=== PATIENT | male | born 1955 | race Caucasian/White ===

== ENCOUNTER → 2017-01-31 | Outpatient (CLI) | payer OTHER ==
--- NOTE | 2017-01-31 10:42 | REP ---
RIGHT KNEE SERIES: Five views. HISTORY: Pain in the right knee. FINDINGS: There is osteoarthritic spurring and mild narrowing of the patellofemoral compartment. There is narrowing and sclerosis and spur formation in the medial compartment. There is some diffuse osteopenia. Minimal lateral spurring is seen. No joint effusion or erosive change is appreciated. IMPRESSION: Three compartment osteoarthritic changes most pronounced in the medial compartment where there is joint space narrowing and reactive sclerosis in addition to the spurring. Signed by Twan Valencia MD 01/31/2017 11:59 A
== END ==
LOC: M ADAMS 07:57
PROVIDERS: ATTEND Physician Assistant Medical
DX: M17.11 Unilateral primary osteoarthritis, right knee (principal); M85.80 Other specified disorders of bone density and structure, unspecified site

== ENCOUNTER → 2017-01-31 | Outpatient (REF) | payer OTHER ==
[2017-01-31 13:47] LABS: BASO % 0.4 % (0.0-1.0); EOS # 0.2 10^3/uL (0.0-0.50); EOS % 2.4 % (0.0-3.0); IMMATURE GRANULOCYTE % 0.3 % (0-0); LYMPH # 2.5 10^3/uL (1.5-4.5); LYMPH % 27.5 % (24.0-44.0); MEAN CORPUSCULAR HEMOGLOBIN 30.2 pg (27.0-33.0); MEAN CORPUSCULAR HGB CONC 33.1 g/dl (32.0-36.5); MEAN CORPUSCULAR VOLUME 91.2 fl (80.0-96.0); MONO # 0.6 10^3/uL (0.0-0.8); MONO % 6.8 % (0.0-5.0); NEUTROPHILS # 5.8 10^3/uL (1.8-7.7); NEUTROPHILS % 62.6 % (36.0-66.0); PLATELET COUNT, AUTOMATED 223 10^3/uL (150-450); RED CELL DISTRIBUTION WIDTH 13.5 % (11.5-14.5); WHITE BLOOD COUNT 9.2 10^3/uL (4.0-10.0)
[2017-01-31 14:17] LABS: ALBUMIN/GLOBULIN RATIO 1.29 (1.00-1.93); ALKALINE PHOSPHATASE 66 U/L (45-117); ALT/SGPT 26 U/L (12-78); ANION GAP 5 MEQ/L (8-16); AST/SGOT 17 U/L (15-37); BILIRUBIN,TOTAL 0.5 MG/DL (0.2-1.0); BLOOD UREA NITROGEN 11 MG/DL (7-18); CALCIUM LEVEL 8.8 MG/DL (8.8-10.2); CARBON DIOXIDE LEVEL 31 MEQ/L (21-32); CHLORIDE LEVEL 104 MEQ/L (98-107); CHOLESTEROL LEVEL 223 MG/DL (<200); CREATININE FOR GFR 0.77 MG/DL (0.70-1.30); GLOMERULAR FILTRATION RATE > 60.0 (>49); GLUCOSE, FASTING 86 MG/DL (80-110); POTASSIUM SERUM 4.2 MEQ/L (3.5-5.1); SODIUM LEVEL 140 MEQ/L (136-145); TOTAL PROTEIN 7.1 GM/DL (6.4-8.2); TRIGLYCERIDES LEVEL 118 MG/DL (<150)
== END ==
LOC: M SFHCADAM 07:56
PROVIDERS: ATTEND Physician Assistant Medical
DX: Z00.00 Encounter for general adult medical examination without abnormal findings (principal)

== ENCOUNTER → 2017-06-18 | Outpatient (REF) | payer OTHER ==
[2017-06-18 14:12] LABS: ALBUMIN 3.9 GM/DL (3.2-5.2); ALKALINE PHOSPHATASE 66 U/L (45-117); ALT/SGPT 23 U/L (12-78); ANION GAP 7 MEQ/L (8-16); AST/SGOT 17 U/L (7-37); BILIRUBIN,TOTAL 0.5 MG/DL (0.2-1.0); BLOOD UREA NITROGEN 11 MG/DL (7-18); CARBON DIOXIDE LEVEL 29 MEQ/L (21-32); CHLORIDE LEVEL 103 MEQ/L (98-107); CHOLESTEROL LEVEL 238 MG/DL (<200); CREATININE FOR GFR 0.87 MG/DL (0.70-1.30); GLOMERULAR FILTRATION RATE > 60.0 (>49); GLUCOSE, FASTING 87 MG/DL (70-100); HDL CHOLESTEROL 40 MG/DL (>40); LDL CHOLESTEROL 173.2 MG/DL (<100); NON-HDL-C 198 MG/DL; POTASSIUM SERUM 4.4 MEQ/L (3.5-5.1); SODIUM LEVEL 139 MEQ/L (136-145); TOTAL PROTEIN 6.9 GM/DL (6.4-8.2); TRIGLYCERIDES LEVEL 124 MG/DL (<150)
== END ==
LOC: M SFHCPLAZ 07:59
DX: E78.00 Pure hypercholesterolemia, unspecified (principal); F17.210 Nicotine dependence, cigarettes, uncomplicated; M25.561 Pain in right knee
CPT/HCPCS: 80053

== ENCOUNTER → 2018-01-07 | Outpatient (REF) | payer OTHER ==
[2018-01-07 13:39] LABS: ALBUMIN 3.9 GM/DL (3.2-5.2); ALBUMIN/GLOBULIN RATIO 1.39 (1.00-1.93); ALKALINE PHOSPHATASE 62 U/L (45-117); ALT/SGPT 31 U/L (12-78); ANION GAP 8 MEQ/L (8-16); AST/SGOT 17 U/L (7-37); BILIRUBIN,TOTAL 0.6 MG/DL (0.2-1.0); BLOOD UREA NITROGEN 11 MG/DL (7-18); CALCIUM LEVEL 8.7 MG/DL (8.8-10.2); CARBON DIOXIDE LEVEL 26 MEQ/L (21-32); CHLORIDE LEVEL 105 MEQ/L (98-107); CHOLESTEROL LEVEL 227 MG/DL (<200); CHOLESTEROL RISK RATIO 5.675 (<5); CREATININE FOR GFR 0.73 MG/DL (0.70-1.30); GLOMERULAR FILTRATION RATE > 60.0 (>49); GLUCOSE, FASTING 87 MG/DL (70-100); HDL CHOLESTEROL 40 MG/DL (>40); LDL CHOLESTEROL 166 MG/DL (<100); NON-HDL-C 187 MG/DL; POTASSIUM SERUM 4.1 MEQ/L (3.5-5.1); SODIUM LEVEL 139 MEQ/L (136-145); TOTAL PROTEIN 6.7 GM/DL (6.4-8.2); TRIGLYCERIDES LEVEL 107 MG/DL (<150)
== END ==
LOC: M SFHCADAM 08:06
DX: E78.00 Pure hypercholesterolemia, unspecified (principal)

== ENCOUNTER → 2018-06-10 | Outpatient (REF) | payer OTHER ==
[2018-06-10 13:53] LABS: ALBUMIN 4.1 GM/DL (3.2-5.2); ALT/SGPT 35 U/L (12-78); BILIRUBIN,TOTAL 0.7 MG/DL (0.2-1.0); BLOOD UREA NITROGEN 9 MG/DL (7-18); CALCIUM LEVEL 8.8 MG/DL (8.8-10.2); CARBON DIOXIDE LEVEL 25 MEQ/L (21-32); CHLORIDE LEVEL 105 MEQ/L (98-107); CHOLESTEROL LEVEL 174 MG/DL (<200); CHOLESTEROL RISK RATIO 4.578 (<5); CREATININE FOR GFR 0.73 MG/DL (0.70-1.30); GLOMERULAR FILTRATION RATE > 60.0 (>49); GLUCOSE, FASTING 90 MG/DL (70-100); HDL CHOLESTEROL 38 MG/DL (>40); LDL CHOLESTEROL 114 MG/DL (<100); NON-HDL-C 136 MG/DL; POTASSIUM SERUM 4.3 MEQ/L (3.5-5.1); SODIUM LEVEL 139 MEQ/L (136-145); TOTAL PROTEIN 6.8 GM/DL (6.4-8.2); TRIGLYCERIDES LEVEL 111 MG/DL (<150)
== END ==
LOC: M SFHCADAM 07:47
PROVIDERS: ATTEND Physician Assistant Medical
DX: E78.00 Pure hypercholesterolemia, unspecified (principal)

== ENCOUNTER → 2018-06-18 | Outpatient (CLI) | payer OTHER ==
--- NOTE | 2018-06-18 14:30 | REP ---
Clinical: Pain. Technique: AP and lateral views of the right and left knee. Findings: Moderate tricompartmental osteoarthritic degenerative changes noted bilaterally. Findings include subchondral sclerosis, medial joint space narrowing, and a scattered osteophyte formation. No acute fracture dislocation. No significant swelling. No obvious effusion. Impression: Bilateral moderate tricompartmental osteoarthritic degenerative changes. Electronically Signed by Pieter Singh MD 06/18/2018 02:21 P
== END ==
LOC: M ADAMS 13:32
PROVIDERS: ATTEND Physician Assistant Medical
DX: M25.561 Pain in right knee (principal); M25.562 Pain in left knee

== ENCOUNTER → 2019-05-01 | Outpatient (CLI) | payer OTHER ==
--- NOTE | 2019-05-01 10:01 | REP ---
SCROTAL ULTRASOUND: Real-time sonographic evaluation of the scrotum and contents performed. The testicles are normal in size and echotexture, right testicle measuring 4.8 x 2.7 x 3.2 cm and left testicle 4.6 x 3.1 x 3.1 cm. There is no testicular mass or torsion, blood flow is seen in each chest with duplex Doppler evaluation. Two cysts are seen in the left epididymis containing echogenic debris. These measure 6.9 x 4.5 x 6.4 cm and 4.0 x 3.2 x 3.2 cm. Tubular ectasia is seen in the mediastinum testis bilaterally. There are small bilateral hydroceles. IMPRESSION: Two fairly large cysts of the left epididymis contain some internal echogenic debris as discussed above. No testicular mass or torsion. Electronically Signed by Brandan Mistry MD 05/02/2019 03:12 P
== END ==
LOC: M RAD 07:53
PROVIDERS: ATTEND Physician Assistant Medical
DX: N50.89 Other specified disorders of the male genital organs (principal)

== ENCOUNTER → 2019-05-29 | Outpatient (REF) | payer OTHER | LOC: M LABDRWAD 12:34 | DX: M17.0 Bilateral primary osteoarthritis of knee (principal) ==

== ENCOUNTER → 2019-05-29 | Outpatient (REF) | payer OTHER ==
[2019-05-29 13:08] LABS: BASO % 0.5 % (0.0-1.0); EOS # 0.2 10^3/uL (0.0-0.5); LYMPH # 2.8 10^3/uL (1.5-5.0); LYMPH % 32.7 % (24.0-44.0); MEAN CORPUSCULAR HEMOGLOBIN 30.6 pg (27.0-33.0); MEAN CORPUSCULAR HGB CONC 33.3 g/dl (32.0-36.5); MEAN CORPUSCULAR VOLUME 91.8 fl (80.0-96.0); MONO # 0.7 10^3/uL (0.0-0.8); MONO % 7.6 % (0.0-5.0); NEUTROPHILS # 4.9 10^3/uL (1.5-8.5); PLATELET COUNT, AUTOMATED 210 10^3/uL (150-450); RED BLOOD COUNT 5.23 10^6/uL (4.30-6.10); WHITE BLOOD COUNT 8.7 10^3/uL (4.0-10.0)
[2019-05-29 14:03] LABS: ALT/SGPT 34 U/L (12-78); BILIRUBIN,TOTAL 0.5 MG/DL (0.2-1.0); BLOOD UREA NITROGEN 11 MG/DL (7-18); CALCIUM LEVEL 9.1 MG/DL (8.8-10.2); CARBON DIOXIDE LEVEL 29 MEQ/L (21-32); CHLORIDE LEVEL 104 MEQ/L (98-107); CHOLESTEROL LEVEL 180 MG/DL (<200); CHOLESTEROL RISK RATIO 4.736 (<5); CREATININE FOR GFR 0.85 MG/DL (0.70-1.30); GLOMERULAR FILTRATION RATE > 60.0 (>49); GLUCOSE, FASTING 92 MG/DL (70-100); HDL CHOLESTEROL 38 MG/DL (>40); LDL CHOLESTEROL 122 MG/DL (<100); NON-HDL-C 142 MG/DL; POTASSIUM SERUM 4.6 MEQ/L (3.5-5.1); SODIUM LEVEL 139 MEQ/L (136-145); TOTAL PROTEIN 7.1 GM/DL (6.4-8.2); TRIGLYCERIDES LEVEL 98 MG/DL (<150)
== END ==
LOC: M SFHCADAM 08:13
PROVIDERS: ATTEND Physician Assistant Medical
DX: E78.00 Pure hypercholesterolemia, unspecified (principal); F17.210 Nicotine dependence, cigarettes, uncomplicated

== ENCOUNTER → 2019-12-25 | Outpatient (REF) | payer OTHER | LOC: M LAB REF 12:13 | PROVIDERS: ATTEND Dermatology | DX: L57.0 Actinic keratosis (principal) ==

== ENCOUNTER → 2020-03-24 | Outpatient (CLI) | payer OTHER ==
--- NOTE | 2020-03-24 10:25 | REP ---
INDICATION: OSTEOARTHRITIS RIGHT KNEE- LABS/EKG 1ST COMPARISON: None. TECHNIQUE: PA and lateral. FINDINGS: The mediastinum and cardiac silhouette are normal. The lung richardson are clear and without acute consolidation, effusion, or pneumothorax. The skeletal structures are intact and normal. IMPRESSION: No acute cardiopulmonary process. <Electronically signed by Pieter Singh > 03/24/20 1022
[2020-03-24 10:35] LABS: HEMATOCRIT 45.8 % (42.0-52.0); HEMOGLOBIN 15.5 g/dl (13.5-17.5); MEAN CORPUSCULAR HEMOGLOBIN 30.9 pg (27.0-33.0); MEAN CORPUSCULAR HGB CONC 33.8 g/dl (32.0-36.5); MEAN CORPUSCULAR VOLUME 91.2 fl (80.0-96.0); PLATELET COUNT, AUTOMATED 211 10^3/uL (150-450); RED BLOOD COUNT 5.02 10^6/uL (4.30-6.10); WHITE BLOOD COUNT 6.5 10^3/uL (4.0-10.0)
[2020-03-24 10:48] LABS: INR 1.02; PROTHROMBIN TIME 13.6 SECONDS (12.5-14.3)
[2020-03-24 11:17] LABS: ALBUMIN 3.9 GM/DL (3.2-5.2); ALT/SGPT 35 U/L (12-78); BILIRUBIN,TOTAL 0.7 MG/DL (0.2-1.0); BLOOD UREA NITROGEN 10 MG/DL (7-18); CALCIUM LEVEL 8.8 MG/DL (8.8-10.2); CARBON DIOXIDE LEVEL 28 MEQ/L (21-32); CHLORIDE LEVEL 106 MEQ/L (98-107); CREATININE FOR GFR 0.89 MG/DL (0.70-1.30); ERYTHROCYTE SEDIMENTATION RATE 3 mm/hr (0-20); GLOMERULAR FILTRATION RATE > 60.0 (>49); GLUCOSE, FASTING 90 MG/DL (70-100); POTASSIUM SERUM 4.3 MEQ/L (3.5-5.1); SODIUM LEVEL 140 MEQ/L (136-145); TOTAL PROTEIN 6.9 GM/DL (6.4-8.2)
--- NOTE | 2020-03-24 12:20 | ECGEPIP ---
[facility] Test Date: 2020-03-24 Pat Name: ALEENA BEARD Department: Room: - Gender: Male Import Clerk: ASTRID : 1955 Requested By: Spencer Lim Order Number: [id number] Reading MD: Charlotte Velez Measurements Intervals Yoder Rate: 51 P: 2 NM: 191 QRS: 30 QRSD: 113 T: 29 QT: 432 QTc: 401 Interpretive Statements SINUS BRADYCARDIA POSSIBLE INFERIOR MYOCARDIAL INFARCTION, PROBABLY OLD NO PRIOR Electronically Signed on 03-24-2020 12:20:30 EST by Charlotte Velez
== END ==
LOC: M LAB 08:24
PROVIDERS: ATTEND Orthopaedic Surgery
DX: Z01.818 Encounter for other preprocedural examination (principal); M17.11 Unilateral primary osteoarthritis, right knee; R94.31 Abnormal electrocardiogram [ECG] [EKG]

== ENCOUNTER → 2020-04-17 | Outpatient (CLI) | payer OTHER ==
[~2020-04-17] MED LIST: MELO15TA28 PO; SIMV20TA22 PO
== END ==
LOC: M LABSMTC 08:10
PROVIDERS: ATTEND Anesthesiology
DX: Z01.812 Encounter for preprocedural laboratory examination (principal); Z20.828 Contact with and (suspected) exposure to other viral communicable diseases

== ENCOUNTER 2020-04-20 06:18 | Inpatient (IN) | payer OTHER ==
[2020-04-20] VITALS (7 sets, daily range): BP systolic 127–149; BP diastolic 80–96
[~2020-04-20] VITALS: Ht 185.4 cm; Wt 98.8 kg
[2020-04-20] MEDS ORDERED: fentaNYL 100 MCG/2 ML INJECTION (J3010) As Ordered ONE ×2 (06:58→07:09)
[2020-04-20] MEDS ORDERED: MIDAZOLAM INJ 2MG/2ML VIAL (J2250 PER 1MG) As Ordered ONE ×2 (06:58→07:09)
[2020-04-20] MEDS ORDERED: LR 1,000 ML IV ONE (07:00)
[2020-04-20] MEDS ORDERED: ceFAZolin SOD 2 GM in IV 1 EA IV ONE (07:00)
[2020-04-20] MEDS ORDERED: ACETAMINOPHEN 500 MG TAB PO ONE (07:00)
[2020-04-20] MEDS ORDERED: MIDAZOLAM INJ 2MG/2ML VIAL (J2250 PER 1MG) IV PRN (07:01)
[2020-04-20] MEDS ORDERED: fentaNYL 100 MCG/2 ML INJECTION (J3010) IV PRN ×2 (07:01→10:00)
[2020-04-20] MEDS ORDERED: BUPIVACAINE HCL 0.25% 10ML VIAL As Ordered ONE (07:06)
[2020-04-20] MEDS ORDERED: TRANEXAMIC ACID 100 MG/ML 10ML VIAL As Ordered ONE (07:06)
[2020-04-20] MEDS ORDERED: BUPIVACAINE LIPOSOME/PF 1.3% 20ML VIAL (13.3MG/ML)(EXPAREL)(C9290 PER1MG) As Ordered ONE (07:07)
[2020-04-20] MEDS ORDERED: EPINEPHrine INJ 1 MG/ML 1ML AMP As Ordered ONE ×2 (07:07→07:22)
[2020-04-20] MEDS ORDERED: ceFAZolin 1GM VIAL (J0690 PER 500MG) As Ordered ONE (07:07)
[2020-04-20] MEDS ORDERED: LIDOCAINE 2% 100MG/5ML SDV (FOR ANES.) As Ordered ONE (07:09)
[2020-04-20] MEDS ORDERED: ONDANSETRON 4MG/2ML VIAL As Ordered ONE (07:09)
[2020-04-20] MEDS ORDERED: propofoL 200 MG/20 ML VIAL As Ordered ONE ×3 (07:09→09:22)
[2020-04-20] MEDS ORDERED: ROPIvacaine 0.5% 30ML INJECTION (J2795 PER 1MG) As Ordered ONE (07:22)
[2020-04-20] MEDS ORDERED: dexameTHASONE 10MG/1ML VIAL PRES.FREE (J1100 PER 1MG) As Ordered ONE (07:22)
[2020-04-20] MEDS ORDERED: EPINEPHrine INJ 1 MG/ML 1ML AMP XX ONE (07:30)
[2020-04-20] MEDS ORDERED: ROPIvacaine 0.5% 30ML INJECTION (J2795 PER 1MG) XX ONE (07:30)
[2020-04-20] MEDS ORDERED: dexameTHASONE 10MG/1ML VIAL PRES.FREE (J1100 PER 1MG) XX ONE (07:30)
[2020-04-20] MEDS ORDERED: ePHEDrine SULFATE 25 MG/5 ML(5MG/ML) SYRINGE As Ordered ONE (08:55)
[2020-04-20] MEDS ORDERED: MORPHINE 2 MG/ML 1ML VIAL (J2270) IV PRN (10:00)
[2020-04-20] MEDS ORDERED: MORPHINE 4 MG/ML 1ML VIAL/SYRINGE (J2270) IV PRN (10:00)
[2020-04-20] MEDS ORDERED: ACETAMINOPHEN TAB 650MG DOSE (2X325MG) PO PRN (10:00)
[2020-04-20] MEDS ORDERED: LR 1,000 ML IV SCH ×2 (10:00)
[2020-04-20] MEDS ORDERED: oxyCODONE 5MG TAB PO PRN (10:00)
[2020-04-20] MEDS ORDERED: PERCOCET 5MG/325MG TAB PO PRN (10:00)
[2020-04-20] MEDS ORDERED: ONDANSETRON 4MG/2ML VIAL IV PRN ×2 (10:00)
--- NOTE | 2020-04-20 10:22 | RO ---
OPERATIVE NOTE DATE OF OPERATION: 04/20/2020 PREOPERATIVE DIAGNOSIS: Right knee degenerative arthritis. POSTOPERATIVE DIAGNOSIS: Right knee degenerative arthritis. PROCEDURE: Right total knee arthroplasty using a size 6 cruciate-sacrificing femoral component, size 8 tibial try with a 7-mm rotating platform polyethylene insert, and a 38-mm polyethylene button. All components were cemented. Prosthesis was made by [employer] and was an Attune knee. SURGEON: Spencer Celis M.D. FOOD SCIENCE PROFESSOR: BRIT Osullivan. ANESTHESIA: Spinal with right femoral nerve block. COMPLICATIONS: None. ESTIMATED BLOOD LOSS: 30 mL. SPECIMENS: Joint surface. DESCRIPTION OF PROCEDURE: Antibiotics were given intravenously preoperative, a successful right femoral nerve block, and then a spinal anesthetic was induced. Tourniquet was placed to the right upper thigh and not inflated. The right lower extremity was carefully prepped and draped in the usual sterile fashion and the leg elevated. After appropriate time-out, the tourniquet was inflated. Then, a longitudinal incision was made for a medial parapatellar approach to the knee. Bovee cautery used to coagulate crossing vessels. A subperiosteal dissection around the proximal, medial, and lateral tibial plateau was performed. The patella was everted, the knee flexed, and ACL debrided. The drill was placed down the center of the femoral canal followed by intramedullary kathie. The distal femoral cutting jig was set at 9 mm resection level and 5-degree valgus cut for a right knee. Distal femoral cut performed. AP sizing jig measured for a size 7. The 4:1 block applied with 3 degrees of external rotation dialed in. Anterior and posterior chamfer cuts were then performed. Then the sulcus osteotomy jig was applied and the sulcus osteotomy performed. We then exposed the proximal tibia and used the extramedullary alignment jig for the tibial cut to estimate being parallel to the mechanical axis, referring off the medial tibial condyle at 4 mm resection level. The blocked was pinned in to position. A secondary check with the extramedullary kathie confirmed that we appeared to be parallel to the mechanical axis. Proximal tibial osteotomy was thus performed. We then placed the lamina research assistant member medially and performed completion lateral meniscectomy reaming the posterior lateral osteophytes. I then placed the lamina research assistant member laterally and performed a completion medial meniscus reaming the posterior medial osteophytes. We then placed a spacer block, but he was very tight asymmetrically in flexion versus extension. There was a fairly significant mismatch. We could barely even get a 5 mm in the flexion gap, but he needed about an 8 mm in extension. At this point, I elected to downsize the femoral component. The femoral jig was then reapplied, that is the 4:1 block, into the prior holes using the batwing to make sure we had appropriate alignment and then, the posterior and the chamfer cuts were performed and revised. We then replaced the spacer block and it was clearly improved, but he was still a bit asymmetrically tight in flexion versus extension. I did also recut the tibia because he had very dense bone medially and I thought that the blade skived a bit, thus I reapplied the jig and then recut part of the medial tibial plateau, and it did take a bit more bone off; but it still was quite not enough. Thus, I felt converting to a PCL-sacrificing knee was necessary. Thus, the box jig for the box osteotomy was applied and the box osteotomy performed. We then sized the tibial tray for an 8; reamed, drilled, broached, and then applied the femoral component. Then placed a trial 7-mm rotating platform trial and brought the knee into extension. With this, he had excellent stability symmetrically both in flexion and extension to varus and valgus stress testing. We everted the patella and performed the patella osteotomy and sized for a 38 button. The lug holes were drilled, the trial placed, and patellofemoral tracking was anatomic. Thus, I felt this was the appropriate size components to use. Mr. Wallace then mixed the cement on the back table as I prepared the bony surfaces for cementing with a copious amount of pulsatile lavage irrigant solution. He was also critical to the success of this difficult procedure by helping with appropriate soft tissue retraction, helping to manipulate the knee, helping to mix the cemented, helping to close the wound, and helping preparing the patient amongst many other tasks to allow me to perform the operation, smooth, efficiently, and safely. Once all the bony surfaces were thoroughly dried, we cemented the tibial tray, and removed excess cement. We then cemented the femoral component; removed excess cemented, and placed the polyethylene. We then brought to extension, then cemented the patellar button, held it with a clamp, and then removed excess cement, and held the knee in extension until the cement hardened. As we were waiting, we continued to irrigate out the knee joint and then placed tranexamic acid in the depths of the wound. Exparel was placed into the subperiosteal tissues around the distal femur and the proximal tibia prior to cementing. We then closed the apex of the arthrotomy with two #1 PDS sutures. The medial parapatellar area was closed with a #1 PDS suture, and then a running double-arm #1 STRATAFIX was used to close the capsule. The tourniquet was then released. We then irrigated between layers, closed the deep subdermal tissues with interrupted 2-0 PDS sutures, and skin was closed with erin covered by Optifoam and dry sterile bulky dressing. The patient was then transferred to the recovery room in stable condition. There were no intraoperative complications.
--- NOTE | 2020-04-20 10:25 | REP ---
INDICATION: POST OP EVAL IN PACU COMPARISON: None. TECHNIQUE: AP and cross-table lateral views. FINDINGS: Normal appearance and positioning to the femoral and tibial components. Overlying postsurgical changes and skin erin noted. IMPRESSION: Status post right knee replacement. Satisfactory positioning. <Electronically signed by Pieter Singh > 04/20/20 1028
--- NOTE | 2020-04-20 11:14 | HPE ---
HISTORY AND PHYSICAL DATE OF ADMISSION: 04/20/2020 ATTENDING PHYSICIAN: Spencer CELIS MD CHIEF COMPLAINT: Right knee pain and stiffness. HISTORY OF PRESENT ILLNESS: The patient is a pleasant 64-year-old male with progressively worsening right knee pain and stiffness. He failed to improve with conservative measures. He continues to have symptoms with weightbearing activities and activities of daily living. He consented for an elective right total knee arthroplasty with Dr. Celis for his continued symptoms. Medical optimization pending with is primary youth care worker, BRIT Davis. CURRENT MEDICATIONS: 1. Simvastatin 20 mg daily. 2. Meloxicam 15 mg daily. ALLERGIES: There are no known drug allergies. CHRONIC MEDICAL CONDITIONS: 1. Hyperlipidemia. PAST SURGICAL HISTORY: None. SOCIAL HISTORY: Patient denies tobacco or alcohol use. REVIEW OF SYSTEMS: The patient denies fevers, chills, nausea, vomiting or diarrhea. Denies chest pain, shortness of breath, lightheadedness, dizziness or headaches. Denies any recent upper respiratory or urinary tract infection symptoms. Denies any abdominal pain. The patient does continue to have right knee with weightbearing activities and activities of daily living. PHYSICAL EXAMINATION: GENERAL: Well-nourished, well-developed male in no apparent distress. He is alert and oriented, and cooperative. Mood and affect are appropriate. VITAL SIGNS: Blood pressure is 138/42, respirations are 12, heart rate is 86, weight is 217 pounds, height is 6'2". NECK: Supple without lymphadenopathy. HEART: Regular rate and rhythm. LUNGS: Clear to auscultation bilaterally. ABDOMEN: Soft and nontender. Bowel sounds are present. MUSCULOSKELETAL: Right knee exhibits no gross abnormalities. Skin is intact. He is not using any assistive devices for ambulation. Walking with a slight limp favoring the right lower extremity. There is tenderness along the medial joint line. He has full motion of the right knee with 5/5 strength of the right lower extremity. No hip irritability elicited with range of motion testing. The patient's calf is soft and nontender without evidence of DVT. He is neurovascularly intact distally. LABORATORY DATA: Chest x-ray: No acute cardiopulmonary process. Right knee x-ray notable for endstage degenerative changes. EKG: Sinus bradycardia with possible inferior myocardial infarction, probably old. Pro-Thrombin time 13.6, INR 1.02. Complete blood count: ESR 3, WBC 6.5, RBC is 5.02, hemoglobin 15.5, hematocrit 45.8, platelets 211,000. Comprehensive metabolic profile: Fasting glucose 90, BUN 10, creatinine 0.89. GFR greater than 60. Sodium 140, potassium 4.3, chloride 106, carbon dioxide 28. Anion gap decreased at 6. Calcium 8.8. AST 17, ALT 35, alkaline phosphatase 52. Total bilirubin 0.7. Total protein 6.9. Albumin 3.9, albumin globulin ratio 1.3. IMPRESSION: Right knee degenerative arthritis with x-rays notable for endstage degenerative changes. PLAN: Patient has consented for an elective right total knee arthroplasty with Dr. Celis for his continued symptoms. Medical optimization pending with is primary youth care worker. Patient is using his Hibiclens and Bactroban as directed. He will be NPO after midnight the night prior to surgery. He will follow his primary youth care worker's recommendations for how to take his daily medications. GAMAL
[2020-04-20] MEDS: PERCOCET 5MG/325MG TAB PO PRN ×2 (13:59→20:18)
--- NOTE | 2020-04-20 15:09 | CR.PDOC ---
General Date of Consultation: Apr 20, 2020 Consultation Chief complaint: Presented to [facility] for elective orthopedic procedure History of present illness: Patient is a 64-year-old male with past medical history of osteoarthritis of both his knees and high cholesterol who presented to [facility] for an elective orthopedic procedure. Patient has received outpatient medical care from his primary care provider Olga Dobbs. Hospital services called to evaluate patient postoperative. Currently patient denies any chest pain, shortness breath, palpitations, nausea, vomiting, abdominal pain, diarrhea, constipation, or urinary discomfort. He denies any recent fevers or chills. Denies any changes in his weight or his appetite. Past Medical History: Osteoarthritis of both his knees High cholesterol Past Surgical History: Tonsillectomy as a child Right arm lymph node resection, was evaluate for possible leukemia, however was found to be secondary to cat scratch Allergies: See below Medications: See below Family History: - No history of malignancies Social History: - Denies the use of illicit drugs; patient quit smoking several years ago. 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 [employer] Review of Systems: 10 point review of systems complete, all negative otherwise stated in HPI Physical exam: - Vitals: BP [127/80], HR [100], RR [18], Sat [100%RA], Temp [96.0F] - General: Lying in bed, Speaking in full sentences, AAOx3 - HEENT: NC, AT, PERRLA - CVS: RRR, +S1S2 - Lungs: Fair air entry bilaterally, No appreciable wheezing / rales / rhonchi - Abdomen: Soft, Non-distended, Non-tender - Extremities: No lower extremity edema, No calf tenderness - Neuro: No focal motor or sensory deficit - Skin: No visible rashes Labs: See below Imaging: See below EKG: See below Assessment and Plan: Elective total right knee arthroplasty (POD#0) - Presented to [facility] for elective orthopedic procedure - Patient has received outpatient medical attention his primary care provider - Pain control, anticoagulation and physical therapy at the direction of primary orthopedic team DLP - c/w Simvastatin DVT prophylaxis - As per orthopedic surgery Vital Signs/I&O Vital Signs Date Time Temp Pulse Resp B/P (MAP) Pulse Ox O2 Delivery O2 Flow Rate FiO2 12/30/20 14:10 95.0 72 18 142/84 (103) 96 Room Air 04/20/20 09:40 3 Allergies Coded Allergies: No Known Allergies (Unverified , 04/13/20) Home Medications Scheduled Simvastatin (Simvastatin) 20 Mg Tablet, 20 MG PO DAILY, (Reported) Scheduled PRN Meloxicam (Meloxicam) 15 Mg Tablet, 15 MG PO DAILYPRN PRN for pain, (Reported) ALBERTO YIN MD Apr 20, 2020 15:09
[2020-04-20] MEDS: ceFAZolin SOD 2 GM in IV 1 EA IV SCH ×2 (15:48→23:28)
[2020-04-20] MEDS: ASPIRIN 81 MG ENTERIC TAB PO SCH (20:17)
[2020-04-21 02:00] VITALS: BP 113/68
[2020-04-21 05:54] VITALS: BP 106/65
[2020-04-21] MEDS ORDERED: PERC5TAB12 PO (06:32)
[2020-04-21] MEDS ORDERED: XARE10TA PO (06:32)
[2020-04-21] MEDS: ASPIRIN 81 MG ENTERIC TAB PO SCH (07:06)
[2020-04-21] MEDS: PERCOCET 5MG/325MG TAB PO PRN (07:07)
[2020-04-21 07:08] LABS: HEMATOCRIT 38.8 % (42.0-52.0); MEAN CORPUSCULAR HEMOGLOBIN 30.7 pg (27.0-33.0); MEAN CORPUSCULAR HGB CONC 33.5 g/dl (32.0-36.5); MEAN CORPUSCULAR VOLUME 91.7 fl (80.0-96.0); PLATELET COUNT, AUTOMATED 193 10^3/uL (150-450); RED BLOOD COUNT 4.23 10^6/uL (4.30-6.10); WHITE BLOOD COUNT 11.9 10^3/uL (4.0-10.0)
[2020-04-21] MEDS: ceFAZolin SOD 2 GM in IV 1 EA IV SCH (07:34)
[2020-04-21 07:42] LABS: ALBUMIN 3.2 GM/DL (3.2-5.2); ALT/SGPT 27 U/L (12-78); BILIRUBIN,TOTAL 0.6 MG/DL (0.2-1.0); BLOOD UREA NITROGEN 13 MG/DL (7-18); CALCIUM LEVEL 8.1 MG/DL (8.8-10.2); CARBON DIOXIDE LEVEL 29 MEQ/L (21-32); CHLORIDE LEVEL 106 MEQ/L (98-107); CREATININE FOR GFR 0.79 MG/DL (0.70-1.30); GLOMERULAR FILTRATION RATE > 60.0 (>49); GLUCOSE, FASTING 111 MG/DL (70-100); POTASSIUM SERUM 4.2 MEQ/L (3.5-5.1); SODIUM LEVEL 139 MEQ/L (136-145); TOTAL PROTEIN 5.9 GM/DL (6.4-8.2)
[2020-04-21] MEDS ORDERED: MOM 30ML SUSPENSION UDC PO SCH (09:00)
[2020-04-21] MEDS ORDERED: SIMVASTATIN 20 MG TAB PO SCH (09:00)
[2020-04-21] MEDS ORDERED: MIRALAX *UNIT DOSE* 17GM PACKET PO SCH (09:00)
--- NOTE | 2020-04-21 13:38 | IPNPDOC ---
Text Note Date of Service The patient was seen on 04/21/20. NOTE Subjective: Patient is a 64-year-old male with past medical history of osteoarthritis of both his knees and high cholesterol who presented to for an elective orthopedic procedure. Patient has received outpatient medical care from his primary care provider Olga Dobbs. Hospital services called to evaluate patient postoperative. Patient was seen and examined at the bedside. Currently patient denies any chest pain, shortness breath or palpitations. Has been working with physical therapy and has been cleared for discharge home. Denies any nausea, vomiting, abdominal pain, diarrhea, or urinary discomfort. Objective: Vitals (See below) General: Lying in bed, no acute distress, comfortable, AAOx3 HEENT: NC, AT CVS: +S1S2 Lungs: appears to be fair air entry bilaterally without any evidence of rhonchi, crackles or wheezing Abdomen: Soft, nondistended, nontender Extremities: No evidence of edema, - Calf tenderness Assessment and plan: Elective total right knee arthroplasty (POD#1) - Presented to for elective orthopedic procedure - Patient has received outpatient medical attention his primary care provider - Pain control, anticoagulation and physical therapy at the direction of primary orthopedic team - Patient has cleared physical therapy for discharge home today DLP - c/w Simvastatin DVT prophylaxis - As per orthopedic surgery Disposition: - DC home today VSLyric, I+O VSLyric, I+O Laboratory Tests 04/21/20 06:38 Vital Signs Date Time Temp Pulse Resp B/P (MAP) Pulse Ox O2 Delivery O2 Flow Rate FiO2 04/21/20 07:37 16 04/21/20 07:07 64 97 Room Air 04/21/20 05:54 99.0 106/65 (79) 04/20/20 09:40 3 I&O- Last 24 Hours up to 6 AM 04/21/20 06:00 Intake Total 2450 ml Output Total 30 ml Balance 2420 ml ALBERTO IYN MD Apr 21, 2020 13:38
== END 2020-04-21 10:50 | disposition home or self-care (01) | DRG 470 ==
LOC: M OR 06:18 → M MS5PR 10:37
PROVIDERS: ADMIT Orthopaedic Surgery; ATTEND Orthopaedic Surgery
PROC: 0SRC0J9 Replacement of Right Knee Joint with Synthetic Substitute, Cemented, Open Approach (ICD-10-PCS; principal; 2020-04-20 07:30)
DX: M17.11 Unilateral primary osteoarthritis, right knee (principal); Z79.899 Other long term (current) drug therapy; E78.5 Hyperlipidemia, unspecified

== ENCOUNTER 2020-05-26 15:26 | Emergency (ER) | payer OTHER, MEDICARE ==
[~2020-05-26] VITALS: Ht 185.4 cm; Wt 100.3 kg
[~2020-05-26 15:26] MED LIST changes: +PERC5TAB12 PO; +XARE10TA PO
--- OUTSIDE RECORDS SUMMARY | 2020-05-26 15:34 | CCD | Continuity of Care Document ---
Author Author Shelton SANCHEZ Organization Unknown Address [address] [address] Phone [phone] Care Team Providers Care Bullet Slug Casting Machine Operator Name Role Phone Olga Martin RPA AUTM Problems Description No Information Available Social History Type Date Description Comments Sex Unknown ETOH Use Rarely consumes alcohol Tobacco Use Start: Unknown End: Unknown Patient is a former smoker Allergies, Adverse Reactions, Alerts Description No Known Drug Allergies Medications Active Medications SIG Qnty Indications Ordering Provide r Date Simvastatin 40mg Tablets Unknown Meloxicam 15mg Tablets 1 by mouth every day with food or milk Unknown History Medications Hibiclens 4% Liquid use in shower once daily for 5 days before surgery 1units Spencer blanco MD 02/24/2020 - 05/06/2020 Bactroban 2% Ointment apply a pea sized amount to nasal passages three times a day x 5d before surgery ALEISHA Clemons MD 02/24/2020 - 05/06/2020 Immunizations Description No Information Available Vital Signs Date Vital Result Comment 05/06/2020 9:55am Body Temperature 96.2 F 04/18/2020 10:00am BP Systolic 138 mmHg BP Diastolic 42 mmHg Heart Rate 86 /min Body Temperature 96.8 F Height 74 inches 6'2" Weight 217.00 lb BMI (Body Mass Index) 27.9 kg/m2 Respiratory Rate 12 /min Results Test Acquired Date Facility Test Result H/L Range Note Prothrombin Time/Inr 03/24/2020 [facility] entr [address] [place] [address] (897)- - Prothrombin Time 13.6 seconds Normal 12.5-14.3 Inr 1.02 Normal 1 Complete Blood Count 03/24/2020 [facility] C entr [address] [place] [address] (315)- - White Blood Count 6.5 10 Normal 4.0-10.0 Red Blood Count 5.02 10 Normal 4.30-6.10 Hemoglobin 15.5 g/dL Normal 13.5-17.5 Hematocrit 45.8 % Normal 42.0-52.0 Mean Corpuscular Volume 91.2 fl Normal 80.0-96.0 Mean Corpuscular Hemoglobin 30.9 pg Normal 27.0-33.0 Mean Corpuscular HGB Conc 33.8 g/dL Normal 32.0-36.5 Red Cell Distribution Width 12.7 % Normal 11.5-14.5 Platelet Count, Automated 211 10 Normal 150-450 Nucleated Red Blood Cell % 0.0 % Normal 0-0 Laboratory test finding 03/24/2020 [facility] l Centr [address] [place] [address] (315)- - Erythrocyte Sedimentation Rate 3 mm/hr Normal 0-20 Comprehensive Metabolic Profil 03/24/2020 [facility] Medical [facility] [address] [place] [address] (315)- - Glucose, Fasting 90 mg/dL Normal 70-100 Blood Urea Nitrogen 10 mg/dL Normal 7-18 Creatinine For GFR 0.89 mg/dL Normal 0.70-1.30 Glomerular Filtration Rate > 60.0 Normal >49 2 Sodium Level 140 mEq/L Normal 136-145 Potassium Serum 4.3 mEq/L Normal 3.5-5.1 Chloride Level 106 mEq/L Normal 98-107 Carbon Dioxide Level 28 mEq/L Normal 21-32 Anion Gap 6 mEq/L Low 8-16 Calcium Level 8.8 mg/dL Normal 8.8-10.2 Ast/Sgot 17 U/L Normal 7-37 Alt/SGPT 35 U/L Normal 12-78 Alkaline Phosphatase 52 U/L Normal 45-117 Bilirubin,Total 0.7 mg/dL Normal 0.2-1.0 Total Protein 6.9 GM/DL Normal 6.4-8.2 Albumin 3.9 GM/DL Normal 3.2-5.2 Albumin/Globulin Ratio 1.3 Normal 1 THERAPUTIC HUMAN INR VALUES INDICATIONS NORMAL RANGES PROPHYLAXIS/TREATMENT OF: VENOUS THROMBOSIS 2.0-3.0 PULMONARY EMBOLISM 2.0-3.0 PREVENTION OF SYSTEMIC EMBOLISM FROM: TISSUE HEART VALVES 2.0-3.0 ACUTE MYOCARDIAL INFARCTION 2.0-3.0 VALVULAR HEART DISEASE 2.0-3.0 ATRIAL FIBRILLATION 2.0-3.0 MECHANICAL VALVES(HIGH RISK) 2.5-3.5 RECURRENT MYOCARDIAL INFARCTION 2.5-3.5 2 Units are mL/min/1.73 m2 Chronic Kidney Disease Staging per NKF: Stage I & II GFR >=60 Normal to Mildly Decreased Stage III GFR 30-59 Moderately Decreased Stage IV GFR 15-29 Severely Decreased Stage V GFR <15 Very Little GFR Left ESRD GFR <15 on JUTE BAG CLIPPER Procedures Date Code Description Status 05/25/2020 24463 Therapeutic Procedure, Each 15 M inutes Completed 05/23/2020 97418 Therapeutic Procedure, Each 15 M inutes Completed 05/23/2020 31756 Therapeutic Procedure, Each 15 M inutes Completed 05/20/2020 97961 Therapeutic Procedure, Each 15 M inutes Completed 05/20/2020 86651 Therapeutic Procedure, Each 15 M inutes Completed 05/18/2020 98188 Therapeutic Procedure, Each 15 M inutes Completed 05/18/2020 07884 Therapeutic Procedure, Each 15 M inutes Completed 05/16/2020 64420 Therapeutic Procedure, Each 15 M inutes Completed 05/16/2020 60569 Therapeutic Procedure, Each 15 M inutes Completed 05/13/2020 37462 Therapeutic Procedure, Each 15 M inutes Completed 05/13/2020 74247 Therapeutic Procedure, Each 15 M inutes Completed 05/11/2020 81217 Therapeutic Procedure, Each 15 M inutes Completed 05/11/2020 15462 Therapeutic Procedure, Each 15 M inutes Completed 05/09/2020 01009 Therapeutic Procedure, Each 15 M inutes Completed 05/09/2020 17417 Therapeutic Procedure, Each 15 M inutes Completed 05/06/2020 74413 Therapeutic Procedure, Each 15 M inutes Completed 05/06/2020 41098 Therapeutic Procedure, Each 15 M inutes Completed 05/04/2020 50231 Physical Therapy Eval - Low Comp lexity Completed 04/20/2020 22477 Arthroplasty "Total Knee" Medial & Lateral W/ Or W/O Patella Resu Completed 04/20/2020 04755 Arthroplasty "Total Knee" Medial & Lateral W/ Or W/O Patella Resu Completed 01/15/2020 53094 X-Ray Knee Ap & Lateral W/Obliqu es Three Views Completed 01/15/2020 08059 X-Ray Knee Ap & Lateral W/Obliqu es Three Views Completed Medical Devices Description No Information Available Encounters Type Date Location Provider Dx Diagnosis Office Visit 05/06/2020 9:45a Nell Horne PA-C Z47.1 Aftercare following joint replacement surgery Z96.651 Presence of right artificial knee joint Office Visit 04/18/2020 10:00a Nell Horne PA-C Z01.818 Encounter for other preprocedural examination M17.11 Unilateral primary osteoarth ritis, right knee Office Visit 01/15/2020 9:15a Nell Clemons MD M1 7.0 Bilateral primary osteoarthritis of knee Assessments Date Code Description Provider 05/25/2020 Z47.1 Aftercare following joint replac ement surgery Tracy Benson, [facility] 05/25/2020 Z96.651 Presence of right artificial kne e joint Tracy Benson, [facility] 05/23/2020 Z47.1 Aftercare following joint replac ement surgery Trang Scee P.T.A. 05/23/2020 Z96.651 Presence of right artificial kne e joint Trang Scee P.T.A. 05/20/2020 Z47.1 Aftercare following joint replac ement surgery Trang Scee P.T.A. 05/20/2020 Z96.651 Presence of right artificial kne e joint Trang Scee P.T.A. 05/18/2020 Z47.1 Aftercare following joint replac ement surgery Trang Scee P.T.A. 05/18/2020 Z96.651 Presence of right artificial kne e joint Trang Scee P.T.A. 05/16/2020 Z47.1 Aftercare following joint replac ement surgery Tracy Benson, [facility] 05/16/2020 Z96.651 Presence of right artificial kne e joint Tracy Benson, [facility] 05/13/2020 Z47.1 Aftercare following joint replac ement surgery Trang Scee P.T.A. 05/13/2020 Z96.651 Presence of right artificial kne e joint Trang Scee P.T.A. 05/11/2020 Z47.1 Aftercare following joint replac ement surgery Trang Scee P.T.A. 05/11/2020 Z96.651 Presence of right artificial kne e joint Trang Scee P.T.A. 05/09/2020 Z47.1 Aftercare following joint replac ement surgery Trang Scee P.T.A. 05/09/2020 Z96.651 Presence of right artificial kne e joint Trang Scee P.T.A. 05/06/2020 Z47.1 Aftercare following joint replac ement surgery Tracy Benson, [facility] 05/06/2020 Z47.1 Aftercare following joint replac ement surgery Janina Horne PA-C 05/06/2020 Z96.651 Presence of right artificial kne e joint Tracy Benson, [facility] 05/06/2020 Z96.651 Presence of right artificial kne e joint Janina Horne PA-C 05/04/2020 Z47.1 Aftercare following joint replac ement surgery Tracy Benson, [facility] 05/04/2020 Z96.651 Presence of right artificial kne e joint Tracy Benson, [facility] 04/20/2020 M17.11 Unilateral primary osteoarthriti s, right knee Jairo Wallace, [facility] 04/20/2020 M17.11 Unilateral primary osteoarthriti s, right knee Spencer Clemons MD 04/18/2020 Z01.818 Encounter for other preprocedura l dhaval Horne PA-C 04/18/2020 M17.11 Unilateral primary osteoarthriti s, right knee Janina Horne PA-C 01/15/2020 M17.0 Bilateral primary osteoarthritis of knee Spencer Clemons MD Plan of Treatment Future Appointment(s):* 06/02/2020 10:00 am - FLORENCIO Mart at Physical Therapy * 05/31/2020 11:00 am - Trang Sanchez P.T.A. at Physical Therapy * 05/27/2020 10:00 am - Trang Sanchez P.T.A. at Physical Therapy * 06/03/2020 10:30 am - Janina Horne PA-C at [place] Functional Status Description No Information Available Mental Status Description No Information Available Referrals Refer to Dr Reason for Referral Status Appt Date Castro Clemons MD PT BASED ON MED. [facility] AND Mena TYLER HAVE A $25 COPAY TO PT DEPT. NT Created [address] [place] [address] [phone] Castro Clemons MD SURGERY PER BANDAR AT R APPRO MARIELY FOR TOTAL RT KNEE(02015) TO SURGERY 04/11/20 RECEIVED WRITTEN AUTH Created [address] [place] [address] [phone]
--- OUTSIDE RECORDS SUMMARY | 2020-05-26 15:34 | CCD | Continuity of Care Document ---
Author Author Shelton SANCHEZ Organization Unknown Address [address] [address] Phone [phone] Care Team Providers Care Parts Department Supervisor Name Role Phone Olga Martin RPA AUTM [phone] Problems Description No Information Available Social History [...] Result H/L Range Note Prothrombin Time/Inr 03/24/2020 [facility] entr [address] [place] [address] (225)- - Prothrombin Time 13.6 seconds Normal 12.5-14.3 Inr 1.02 Normal 1 Complete Blood Count 03/24/2020 [facility] C entr [address] [place] [address] (315)- - White Blood Count 6.5 10 [...] % Normal 0-0 Laboratory test finding 03/24/2020 [facility] l Centr [address] [place] [address] (315)- - Erythrocyte Sedimentation Rate 3 mm/hr Normal 0-20 Comprehensive Metabolic Profil 03/24/2020 [facility] Medical [facility] [address] [place] [address] (315)- - Glucose, Fasting 90 mg/dL Normal [...] Little GFR Left ESRD GFR <15 on BREWING DIRECTOR Procedures Date Code Description Status 05/25/2020 22314 Therapeutic Procedure, Each 15 M inutes Completed 05/23/2020 00059 Therapeutic Procedure, Each 15 M inutes Completed 05/23/2020 30345 Therapeutic Procedure, Each 15 M inutes Completed 05/20/2020 39629 Therapeutic Procedure, Each 15 M inutes Completed 05/20/2020 75750 Therapeutic Procedure, Each 15 M inutes Completed 05/18/2020 19510 Therapeutic Procedure, Each 15 M inutes Completed 05/18/2020 27893 Therapeutic Procedure, Each 15 M inutes Completed 05/16/2020 51888 Therapeutic Procedure, Each 15 M inutes Completed 05/16/2020 63884 Therapeutic Procedure, Each 15 M inutes Completed 05/13/2020 55359 Therapeutic Procedure, Each 15 M inutes Completed 05/13/2020 16005 Therapeutic Procedure, Each 15 M inutes Completed 05/11/2020 02274 Therapeutic Procedure, Each 15 M inutes Completed 05/11/2020 15147 Therapeutic Procedure, Each 15 M inutes Completed 05/09/2020 98397 Therapeutic Procedure, Each 15 M inutes Completed 05/09/2020 30386 Therapeutic Procedure, Each 15 M inutes Completed 05/06/2020 35773 Therapeutic Procedure, Each 15 M inutes Completed 05/06/2020 05086 Therapeutic Procedure, Each 15 M inutes Completed 05/04/2020 60604 Physical Therapy Eval - Low Comp lexity Completed 04/20/2020 13268 Arthroplasty "Total Knee" Medial & Lateral W/ Or W/O Patella Resu Completed 04/20/2020 20773 Arthroplasty "Total Knee" Medial & Lateral W/ Or W/O Patella Resu Completed 01/15/2020 85756 X-Ray Knee Ap & Lateral W/Obliqu es Three Views Completed 01/15/2020 06867 X-Ray Knee Ap & Lateral W/Obliqu es [...] following joint replac ement surgery Tracy Benson, [facility] 05/25/2020 Z96.651 Presence of right artificial kne e joint Tracy Benson, [facility] 05/23/2020 Z47.1 Aftercare following joint replac [...] following joint replac ement surgery Tracy Benson, [facility] 05/16/2020 Z96.651 Presence of right artificial kne e joint Tracy Benson, [facility] 05/13/2020 Z47.1 Aftercare following joint replac ement surgery Trang Scee P.T.A. 05/13/2020 Z96.651 Presence of right artificial kne e joint Trang Scee P.T.A. 05/11/2020 Z47.1 Aftercare following joint replac ement surgery Trang Scee P.T.A. 05/11/2020 Z96.651 Presence of right artificial kne e joint Trang Scee P.T.A. 05/09/2020 Z47.1 Aftercare following joint replac ement surgery Rtang Scee P.T.A. 05/09/2020 Z96.651 Presence of right artificial kne e joint Trang Scee P.T.A. 05/06/2020 Z47.1 Aftercare following joint replac ement surgery Tracy Benson, [facility] 05/06/2020 Z47.1 Aftercare following joint replac ement surgery Janina Horne PA-C 05/06/2020 Z96.651 Presence of right artificial kne e joint Tracy Benson, [facility] 05/06/2020 Z96.651 Presence of right artificial kne e joint Janina Horne PA-C 05/04/2020 Z47.1 Aftercare following joint replac ement surgery Tracy Benson, [facility] 05/04/2020 Z96.651 Presence of right artificial kne e joint Tracy Benson, [facility] 04/20/2020 M17.11 Unilateral primary osteoarthriti s, right [...] 10:30 am - Janina Horne PA-C at [place] Functional Status Description No Information Available Mental Status Description No Information Available Referrals Refer to Dr Reason for Referral Status Appt Date Castro Clemons MD PT BASED ON MED. [facility] AND Mena TYLER HAVE A $25 COPAY TO PT DEPT. NT Created [address] [place] [phone] Castro Clemons MD SURGERY PER BANDAR AT R APPRO MARIELY FOR TOTAL RT KNEE(95186) TO SURGERY 04/11/20 RECEIVED WRITTEN AUTH Created [address] [place] [phone]
--- OUTSIDE RECORDS SUMMARY | 2020-05-26 15:34 | CCD | Continuity of Care Document ---
Author Author Shelton SANCHEZ Organization Unknown Address [address] [address] Phone [phone] Care Team Providers Care Air Traffic Controller Center Name Role Phone Olga Martin RPA AUTM [...] Result H/L Range Note Prothrombin Time/Inr 03/24/2020 [facility] entr [address] [place] [address] (055)- - Prothrombin Time 13.6 seconds Normal 12.5-14.3 Inr 1.02 Normal 1 Complete Blood Count 03/24/2020 [facility] C entr [address] [place] [address] (315)- - White Blood Count 6.5 10 [...] % Normal 0-0 Laboratory test finding 03/24/2020 [facility] l Centr [address] [place] [address] (315)- - Erythrocyte Sedimentation Rate 3 mm/hr Normal 0-20 Comprehensive Metabolic Profil 03/24/2020 [facility] Medical [facility] [address] [place] [address] (315)- - Glucose, Fasting 90 mg/dL Normal [...] Little GFR Left ESRD GFR <15 on SENIOR SOFTWARE TESTER Procedures Date Code Description Status 05/25/2020 54324 Therapeutic Procedure, Each 15 M inutes Completed 05/23/2020 81898 Therapeutic Procedure, Each 15 M inutes Completed 05/23/2020 71076 Therapeutic Procedure, Each 15 M inutes Completed 05/20/2020 28160 Therapeutic Procedure, Each 15 M inutes Completed 05/20/2020 04536 Therapeutic Procedure, Each 15 M inutes Completed 05/18/2020 80714 Therapeutic Procedure, Each 15 M inutes Completed 05/18/2020 88016 Therapeutic Procedure, Each 15 M inutes Completed 05/16/2020 88412 Therapeutic Procedure, Each 15 M inutes Completed 05/16/2020 67493 Therapeutic Procedure, Each 15 M inutes Completed 05/13/2020 85966 Therapeutic Procedure, Each 15 M inutes Completed 05/13/2020 80140 Therapeutic Procedure, Each 15 M inutes Completed 05/11/2020 56020 Therapeutic Procedure, Each 15 M inutes Completed 05/11/2020 05970 Therapeutic Procedure, Each 15 M inutes Completed 05/09/2020 46214 Therapeutic Procedure, Each 15 M inutes Completed 05/09/2020 01241 Therapeutic Procedure, Each 15 M inutes Completed 05/06/2020 27419 Therapeutic Procedure, Each 15 M inutes Completed 05/06/2020 90137 Therapeutic Procedure, Each 15 M inutes Completed 05/04/2020 30879 Physical Therapy Eval - Low Comp lexity Completed 04/20/2020 54130 Arthroplasty "Total Knee" Medial & Lateral W/ Or W/O Patella Resu Completed 04/20/2020 41885 Arthroplasty "Total Knee" Medial & Lateral W/ Or W/O Patella Resu Completed 01/15/2020 70714 X-Ray Knee Ap & Lateral W/Obliqu es Three Views Completed 01/15/2020 79577 X-Ray Knee Ap & Lateral W/Obliqu es [...] following joint replac ement surgery Tracy Benson, [facility] 05/25/2020 Z96.651 Presence of right artificial kne e joint Tracy Benson, [facility] 05/23/2020 Z47.1 Aftercare following joint replac ement [...] following joint replac ement surgery Tracy Benson, [facility] 05/16/2020 Z96.651 Presence of right artificial kne e joint Tracy Benson, [facility] 05/13/2020 Z47.1 Aftercare following joint replac ement [...] following joint replac ement surgery Tracy Benson, [facility] 05/06/2020 Z47.1 Aftercare following joint replac ement surgery Janina Horne PA-C 05/06/2020 Z96.651 Presence of right artificial kne e joint Tracy Benson, [facility] 05/06/2020 Z96.651 Presence of right artificial kne e joint Janina Horne PA-C 05/04/2020 Z47.1 Aftercare following joint replac ement surgery Tracy Benson, [facility] 05/04/2020 Z96.651 Presence of right artificial kne e joint Tracy Benson, [facility] 04/20/2020 M17.11 Unilateral primary osteoarthriti s, [...] 10:30 am - Janina Horne PA-C at [place] Functional Status Description No Information Available Mental Status Description No Information Available Referrals Refer to Dr Reason for Referral Status Appt Date Castro Clemons MD PT BASED ON MED. [facility] AND Mena TYLER HAVE A $25 COPAY TO PT DEPT. NT Created [address] [place] [phone] Castro Clemons MD SURGERY PER BANDAR AT R APPRO MARIELY FOR TOTAL RT KNEE(90416) TO SURGERY 04/11/20 RECEIVED WRITTEN AUTH Created [address] [place] [phone]
--- OUTSIDE RECORDS SUMMARY | 2020-05-26 15:35 | CCD | Continuity of Care Document ---
Author Author Shelton SANCHEZ Organization Unknown Address [address] [address] Phone [phone] Care Team Providers Care Hadoop Consultant Name Role Phone Olga Martin RPA AUTM [phone] Problems Description No Information Available Social History [...] H/L Range Note Prothrombin Time/Inr 03/24/2020 [facility] entr [address] [place] [address] (166)- - Prothrombin Time 13.6 seconds Normal 12.5-14.3 Inr 1.02 Normal 1 Complete Blood Count 03/24/2020 [facility] C entr [address] [place] [address] (315)- - White Blood Count 6.5 10 [...] % Normal 0-0 Laboratory test finding 03/24/2020 [facility] l Centr [address] [place] [address] (315)- - Erythrocyte Sedimentation Rate 3 mm/hr Normal 0-20 Comprehensive Metabolic Profil 03/24/2020 [facility] Medical [facility] [address] [place] [address] (315)- - Glucose, Fasting 90 mg/dL Normal [...] Little GFR Left ESRD GFR <15 on MINE LABORER Procedures Date Code Description Status 05/11/2020 07157 Therapeutic Procedure, Each 15 M inutes Completed 05/09/2020 16843 Therapeutic Procedure, Each 15 M inutes Completed 05/06/2020 96449 Therapeutic Procedure, Each 15 M inutes Completed 05/04/2020 54975 Physical Therapy Eval - Low Comp lexity Completed 04/20/2020 94011 Arthroplasty "Total Knee" Medial & Lateral W/ Or W/O Patella Resu Completed 04/20/2020 91946 Arthroplasty "Total Knee" Medial & Lateral W/ Or W/O Patella Resu Completed 01/15/2020 82610 X-Ray Knee Ap & Lateral W/Obliqu es Three Views Completed 01/15/2020 10372 X-Ray Knee Ap & Lateral W/Obliqu es [...] of knee Assessments Date Code Description Provider 05/09/2020 Z47.1 Aftercare following joint replac ement surgery Trang Sanchez P.T.A. 05/09/2020 Z96.651 Presence of right artificial kne e joint Trang Sanchez P.T.A. 05/06/2020 Z47.1 Aftercare following joint replac ement surgery FLORENCIO Mart 05/06/2020 Z47.1 Aftercare following joint replac ement surgery Janina Horne PA-C 05/06/2020 Z96.651 Presence of right artificial kne e joint Tracy Arie Benson, FLORENCIO 05/06/2020 Z96.651 Presence of right artificial kne e joint Janina Horne PA-C 05/04/2020 M17.11 Unilateral primary osteoarthriti s, right knee FLORENCIO Mart 04/20/2020 M17.11 Unilateral primary osteoarthriti s, right knee Judy Elizabeth 04/20/2020 M17.11 Unilateral primary osteoarthriti s, right knee Spencer Clemons MD 04/18/2020 Z01.818 Encounter for other preprocedura l examination Janina Horne PA-C 04/18/2020 M17.11 Unilateral primary osteoarthriti s, right knee Janina Horne PA-C 01/15/2020 M17.0 Bilateral primary osteoarthritis of knee Castro. Raphael Clemons MD Plan of Treatment Future Appointment(s):* 05/16/2020 10:00 am - FLORENCIO Mart at Physical Therapy * 05/20/2020 10:00 am - Trang Scee P.T.A. at Physical Therapy * 05/18/2020 10:00 am - Trang Pachecoe P.T.A. at Physical Therapy * 06/03/2020 10:30 am - Janina Horne PA-C at [place] * 05/13/2020 10:00 am - Trang Scee P.T.A. at Physical Therapy Functional Status Description No Information Available Mental Status Description No Information Available Referrals Refer to Reason for Referral Status Appt Date Castro Clemons MD PT BASED ON MED. [facility] AND Mena TYLER HAVE A $25 COPAY TO PT DEPT. NT Created [address] [place] [address], [address] [place] [address] [phone] Castro Clemons MD SURGERY PER BANDAR AT [facility] APPRO MARIELY FOR TOTAL RT KNEE([id number]) TO SURGERY 04/11/20 RECEIVED WRITTEN AUTH Created [facility], [address] [place] [address] [phone]
--- OUTSIDE RECORDS SUMMARY | 2020-05-26 15:35 | CCD | Continuity of Care Document ---
Author Author Shelton PORRASC Organization Unknown Address [address] [address] Phone [phone] Care Team Providers Care Front Loader Residential Driver Name Role Phone Olga Martin [facility] AUTM Problems Description No Information Available Social History Type Date Description Comments Sex Unknown ETOH Use Rarely consumes alcohol Tobacco Use Start: Unknown End: Unknown Patient is a former smoker Allergies, Adverse Reactions, Alerts Description No Known Drug Allergies Medications Active Medications SIG Qnty Indications Ordering Provide r Date Hibiclens 4% Liquid use in shower once daily for 5 days before surgery 1units Spencer blanco MD 02/24/2020 Bactroban 2% Ointment apply a pea sized amount to nasal passages three times a day x 5d before surgery QS Spencer Clemons MD 02/24/2020 Simvastatin 40mg Tablets Unknown Meloxicam 15mg Tablets 1 by mouth every day with food or milk Unknown Immunizations Description No Information Available Vital Signs Date Vital Result Comment 04/18/2020 10:00am BP Systolic 138 mmHg BP Diastolic 42 mmHg Heart Rate 86 /min Body Temperature 96.8 F Height 74 inches 6'2" Weight 217.00 lb BMI (Body Mass Index) 27.9 kg/m2 Respiratory Rate 12 /min 01/15/2020 9:54am Body Temperature 96.8 F Height 73.5 inches 6'1.50" Weight 212.00 lb BMI (Body Mass Index) 27.6 kg/m2 Results Test Acquired Date Facility Test Result H/L Range Note Prothrombin Time/Inr 03/24/2020 [facility] entr [address] [place] [address] (849)- - Prothrombin Time 13.6 seconds Normal 12.5-14.3 Inr 1.02 Normal 1 Complete Blood Count 03/24/2020 [facility] C entr [address] [place] [address] (315)- - White Blood Count 6.5 10 [...] Normal 0-0 Laboratory test finding 03/24/2020 [facility] [address] [place] [address] (315)- - Erythrocyte Sedimentation Rate 3 mm/hr Normal 0-20 Comprehensive Metabolic Profil 03/24/2020 [facility] [address] [place] [address] (315)- - Glucose, Fasting 90 mg/dL Normal [...] Little GFR Left ESRD GFR <15 on ARMATURE VARNISHER Procedures Date Code Description Status 04/20/2020 72678 Arthroplasty "Total Knee" Medial & Lateral W/ Or W/O Patella Resu Completed 01/15/2020 93065 X-Ray Knee Ap & Lateral W/Obliqu es Three Views Completed 01/15/2020 26070 X-Ray Knee Ap & Lateral W/Obliqu es Three Views Completed 11/05/201975261 Inject/Drain Joint/Bursa Major C ompleted 11/05/2019 Inject/Drain Joint/Bursa Major C ompleted 10/28/2019 Inject/Drain Joint/Bursa Major C ompleted 10/28/2019 Inject/Drain Joint/Bursa Major C ompleted Medical Devices Description No Information Available Encounters Type Date Location Provider Dx Diagnosis Office Visit 04/18/2020 10:00a Nell Porras PA-C Z01.818 Encounter for other preprocedural examination M17.11 Unilateral primary osteoarth ritis, right knee Office Visit 01/15/2020 9:15a Nell Clemons MD M1 7.0 Bilateral primary osteoarthritis of knee Office Visit 11/05/2019 3:30p Nell Titus PA-C M1 7.0 Bilateral primary osteoarthritis of knee Office Visit 10/28/2019 3:45p Nell Titus PA-C M1 7.0 Bilateral primary osteoarthritis of knee Assessments Date Code Description Provider 04/20/2020 M17.11 Unilateral primary osteoarthriti s, right knee Spencer Clemons MD 04/18/2020 Z01.818 Encounter for other preprocedura l examination Janina Porras PA-C 04/18/2020 M17.11 Unilateral primary osteoarthriti s, right knee Janina Porras PA-C 01/15/2020 M17.0 Bilateral primary osteoarthritis of knee Spencer Clemons MD 11/05/2019 M17.0 Bilateral primary osteoarthritis of knee Pancho Titus PA-C 10/28/2019 M17.0 Bilateral primary osteoarthritis of knee Pancho Titus PA-C Plan of Treatment Future Appointment(s):* 05/05/2020 8:30 am - Spencer Clemons MD at [place] Functional Status Description No Information Available Mental Status Description No Information Available Referrals Refer to Reason for Referral Status Appt Date Castro Clemons MD SURGERY PER BANDAR AT [facility] APPRO MARIELY FOR TOTAL RT KNEE([id number]) TO SURGERY 04/11/20 RECEIVED WRITTEN AUTH Created [facility], [address] [place] [address] [phone]
--- OUTSIDE RECORDS SUMMARY | 2020-05-26 15:35 | CCD | Continuity of Care Document ---
Author Author Shelton [facility] Organization Unknown Address [address] [place] [address] Phone [phone] Care Team Providers Care Family Services Worker Name Role Phone Olga Martin [facility] AUTM Problems Description No Information Available Social [...] 5d before surgery ALEISHA Clemons MD 02/24/2020 Simvastatin 40mg Tablets Unknown [...] Result H/L Range Note Prothrombin Time/Inr 03/24/2020 [facility] entr [address] [place] [address] (392)- - Prothrombin Time 13.6 seconds Normal 12.5-14.3 Inr 1.02 Normal 1 Complete Blood Count 03/24/2020 [facility] C entr [address] [place] [address] (315)- - White Blood Count 6.5 10 [...] Normal 0-0 Laboratory test finding 03/24/2020 [facility] [address] [place] [address] (315)- - Erythrocyte Sedimentation Rate 3 mm/hr Normal 0-20 Comprehensive Metabolic Profil 03/24/2020 [facility] [address] [place] [address] (315)- - Glucose, Fasting 90 mg/dL Normal [...] Little GFR Left ESRD GFR <15 on CERTIFIED PROSTHETIST VICE PRESIDENT Procedures Date Code Description Status 04/20/2020 80882 Arthroplasty "Total Knee" Medial & Lateral W/ Or W/O Patella Resu Completed 04/20/2020 14500 Arthroplasty "Total Knee" Medial & Lateral W/ Or W/O Patella Resu Completed 01/15/2020 61691 X-Ray Knee Ap & Lateral W/Obliqu es Three Views Completed 01/15/2020 33816 X-Ray Knee Ap & Lateral W/Obliqu es Three Views Completed 11/05/2019 16619 Inject/Drain Joint/Bursa Major C ompleted 11/05/201917769 Inject/Drain Joint/Bursa Major C ompleted Medical Devices Description No Information Available Encounters Type Date Location Provider Dx Diagnosis Office Visit 04/18/2020 10:00a Nell Horne PA-C [...] Z01.818 Encounter for other preprocedura l dhaval Contreras Fish, PA-C 04/18/2020 M17.11 Unilateral primary osteoarthriti s, right knee Janina Horne PA-C 01/15/2020 M17.0 Bilateral primary osteoarthritis of knee Spencer Clemons MD 11/05/2019 M17.0 Bilateral primary osteoarthritis of knee Pancho Titsu PA-C Plan of Treatment Future Appointment(s):* 05/06/2020 9:00 am - YOLIE MartT at Physical Therapy * 05/05/2020 8:30 am - Spencer Clemons MD at [place] Functional Status Description No Information Available Mental Status Description No Information Available Referrals Refer to Dr Reason for Referral Status Appt Date Castro Clemons MD PT BASED ON MED. [facility] AND Mena TYLER HAVE A $25 COPAY TO PT DEPT. NT Created [address] [place] [address], [address] [address] [phone] Castro Clemons MD SURGERY PER BANDAR AT [facility] APPRO MARIELY FOR TOTAL RT KNEE([id number]) TO SURGERY 04/11/20 RECEIVED WRITTEN AUTH Created [address] [place] [address], [address] [address] [phone]
--- OUTSIDE RECORDS SUMMARY | 2020-05-26 15:35 | CCD | Continuity of Care Document ---
Author Author Shelton PORRASC Organization Unknown Address [address] [address] Phone [phone] Care Team Providers Care Appraiser Auditor Name Role Phone Olga Martin [facility] AUTM [phone] Problems Description No Information Available Social History [...] Result H/L Range Note Prothrombin Time/Inr 03/24/2020 [facility] entr [address] [place] [address] (884)- - Prothrombin Time 13.6 seconds Normal 12.5-14.3 Inr 1.02 Normal 1 Complete Blood Count 03/24/2020 [facility] C entr [address] [place] [address] (315)- - White Blood Count 6.5 10 [...] % Normal 0-0 Laboratory test finding 03/24/2020 [facility] Cent[facility] [address] [place] [address] (315)- - Erythrocyte Sedimentation Rate 3 mm/hr Normal 0-20 Comprehensive Metabolic Profil 03/24/2020 [facility] Medical [facility] [address] [place] [address] (315)- - Glucose, Fasting 90 mg/dL Normal [...] Little GFR Left ESRD GFR <15 on BALLING HEAD TENDER Procedures Date Code Description Status 05/11/2020 90966 Therapeutic Procedure, Each 15 M inutes Completed 05/09/2020 32419 Therapeutic Procedure, Each 15 M inutes Completed 05/06/2020 76835 Therapeutic Procedure, Each 15 M inutes Completed 05/04/2020 11316 Physical Therapy Eval - Low Comp lexity Completed 04/20/2020 99928 Arthroplasty "Total Knee" Medial & Lateral W/ Or W/O Patella Resu Completed 04/20/2020 45597 Arthroplasty "Total Knee" Medial & Lateral W/ Or W/O Patella Resu Completed 01/15/2020 48124 X-Ray Knee Ap & Lateral W/Obliqu es Three Views Completed 01/15/2020 47180 X-Ray Knee Ap & Lateral W/Obliqu es Three Views Completed Medical Devices Description No Information Available Encounters Type Date Location Provider Dx Diagnosis Office Visit 05/06/2020 9:45a Nell Porras PA-C Z47.1 Aftercare following joint replacement surgery Z96.651 Presence of right artificial knee joint Office Visit 04/18/2020 10:00a Nell Porras PA-C Z01.818 Encounter for other preprocedural examination M17.11 Unilateral primary osteoarth ritis, right knee Office Visit 01/15/2020 9:15a Nell Clemons MD M1 7.0 Bilateral primary osteoarthritis of knee Assessments Date Code Description Provider 05/11/2020 Z47.1 Aftercare following joint replac ement surgery Trang Sanchez P.T.A. 05/11/2020 Z96.651 Presence of right artificial kne e joint Trang Sanchez P.T.A. 05/09/2020 Z47.1 Aftercare following joint replac ement surgery Trang Scee P.T.A. 05/09/2020 Z96.651 Presence of right artificial kne e joint Trang Scee P.T.A. 05/06/2020 Z47.1 Aftercare following joint replac ement surgery [facility] 05/06/2020 Z47.1 Aftercare following joint replac ement surgery Janina Porras PA-C 05/06/2020 Z96.651 Presence of right artificial kne e joint Tracy Jimenesdonis, [facility]SP[facility] 05/06/2020 Z96.651 Presence of right artificial kne e joint Janina Porras PA-C 05/04/2020 M17.11 Unilateral primary osteoarthriti s, right knee Tracy MarchGem Benson, FLORENCIO 04/20/2020 M17.11 Unilateral primary osteoarthriti s, right knee Jairo Wallace PPedro Luis 04/20/2020 M17.11 Unilateral primary osteoarthriti s, right [...] Therapy * 06/03/2020 10:30 am - Janina Porras PA-C at [place] * 05/13/2020 10:00 am - Trang Scee P.T.A. at Physical Therapy Functional Status Description No Information Available Mental Status Description No Information Available Referrals Refer to Dr Reason for Referral Status Appt Castro Graf MD PT BASED ON MED. [facility] AND Mena TYLER HAVE A $25 COPAY TO PT DEPT. NT Created [address] [place] [address], [address] [address] [phone] Castro Clemons MD SURGERY PER BANDAR AT [facility] APPRO MARIELY FOR TOTAL RT KNEE([id number]) TO SURGERY 04/11/20 RECEIVED WRITTEN AUTH Created [address] [place] [address], [address] [address] [phone]
--- OUTSIDE RECORDS SUMMARY | 2020-05-26 15:35 | CCD | Continuity of Care Document ---
Author Author Shelton SANCHEZ Organization Unknown Address [address] [address] Phone [phone] Care Team Providers Care Home Care Provider Name Role Phone Olga Martin RPA AUTM [...] Result H/L Range Note Prothrombin Time/Inr 03/24/2020 [facility] entr [address] [place] [address] (747)- - Prothrombin Time 13.6 seconds Normal 12.5-14.3 Inr 1.02 Normal 1 Complete Blood Count 03/24/2020 [facility] C entr [address] [place] [address] (315)- - White Blood Count 6.5 10 [...] % Normal 0-0 Laboratory test finding 03/24/2020 [facility] Cent[facility] [address] [place] [address] (315)- - Erythrocyte Sedimentation Rate 3 mm/hr Normal 0-20 Comprehensive Metabolic Profil 03/24/2020 [facility] Medical [facility] [address] [place] [address] (315)- - Glucose, Fasting 90 mg/dL Normal [...] Little GFR Left ESRD GFR <15 on CASH POSTER Procedures Date Code Description Status 05/25/2020 16247 Therapeutic Procedure, Each 15 M inutes Completed 05/23/2020 39925 Therapeutic Procedure, Each 15 M inutes Completed 05/23/2020 88907 Therapeutic Procedure, Each 15 M inutes Completed 05/20/2020 06008 Therapeutic Procedure, Each 15 M inutes Completed 05/20/2020 52103 Therapeutic Procedure, Each 15 M inutes Completed 05/18/2020 01091 Therapeutic Procedure, Each 15 M inutes Completed 05/18/2020 41988 Therapeutic Procedure, Each 15 M inutes Completed 05/16/2020 60884 Therapeutic Procedure, Each 15 M inutes Completed 05/16/2020 34859 Therapeutic Procedure, Each 15 M inutes Completed 05/13/2020 99364 Therapeutic Procedure, Each 15 M inutes Completed 05/13/2020 28018 Therapeutic Procedure, Each 15 M inutes Completed 05/11/2020 32347 Therapeutic Procedure, Each 15 M inutes Completed 05/11/2020 41609 Therapeutic Procedure, Each 15 M inutes Completed 05/09/2020 10556 Therapeutic Procedure, Each 15 M inutes Completed 05/09/2020 37787 Therapeutic Procedure, Each 15 M inutes Completed 05/06/2020 34582 Therapeutic Procedure, Each 15 M inutes Completed 05/06/2020 66452 Therapeutic Procedure, Each 15 M inutes Completed 05/04/2020 48376 Physical Therapy Eval - Low Comp lexity Completed 04/20/2020 17993 Arthroplasty "Total Knee" Medial & Lateral W/ Or W/O Patella Resu Completed 04/20/2020 10448 Arthroplasty "Total Knee" Medial & Lateral W/ Or W/O Patella Resu Completed 01/15/2020 92317 X-Ray Knee Ap & Lateral W/Obliqu es Three Views Completed 01/15/2020 03302 X-Ray Knee Ap & Lateral W/Obliqu es [...] following joint replac ement surgery Tracy Benson, [facility] 05/25/2020 Z96.651 Presence of right artificial kne e joint Tracy Benson, [facility] 05/23/2020 Z47.1 Aftercare following joint [...] following joint replac ement surgery Tracy Benson, [facility] 05/16/2020 Z96.651 Presence of right artificial kne e joint Tracy Benson, [facility] 05/13/2020 Z47.1 Aftercare following joint [...] following joint replac ement surgery Tracy Benson, [facility] 05/06/2020 Z47.1 Aftercare following joint [...] Therapy * 06/03/2020 10:30 am - Janina Horen PA-C at [place] Functional Status Description No Information Available Mental Status Description No Information Available Referrals Refer to Dr Reason for Referral Status Appt Date Castro Clemons MD PT BASED ON MED. [facility] AND Mena TYLER HAVE A $25 COPAY TO PT DEPT. NT Created [address] [place] [address] [phone] Castro Clemons MD SURGERY PER BANDAR AT [facility] APPRO MARIELY FOR TOTAL RT KNEE([id number]) TO SURGERY 04/11/20 RECEIVED WRITTEN AUTH Created [address] [place] [address] [phone]
--- OUTSIDE RECORDS SUMMARY | 2020-05-26 15:35 | CCD | Continuity of Care Document ---
Author Author Shelton CLEMONS MD Organization Unknown Address [address] [place] [address] Phone [phone] Care Team Providers Care Suction Worker Name Role Phone Olga Martin RPA AUTM [...] Result H/L Range Note Prothrombin Time/Inr 03/24/2020 [facility] entr [address] [place] [address] (315)- - Prothrombin Time 13.6 seconds Normal 12.5-14.3 Inr 1.02 Normal 1 Complete Blood Count 03/24/2020 [facility] C entr [address] [place] [address] (315)- - White Blood Count 6.5 10 [...] % Normal 0-0 Laboratory test finding 03/24/2020 [facility] l Centr [address] [place] [address] (315)- - Erythrocyte Sedimentation Rate 3 mm/hr Normal 0-20 Comprehensive Metabolic Profil 03/24/2020 [facility] [address] [place] [address] (315)- - Glucose, Fasting 90 mg/dL Normal [...] Little GFR Left ESRD GFR <15 on INSTRUMENTATION MANAGER Procedures Date Code Description Status 04/20/2020 83273 Arthroplasty "Total Knee" Medial & Lateral W/ Or W/O Patella Resu Completed 04/20/2020 39774 Arthroplasty "Total Knee" Medial & Lateral W/ Or W/O Patella Resu Completed 01/15/2020 31199 X-Ray Knee Ap & Lateral W/Obliqu es Three Views Completed 01/15/2020 46904 X-Ray Knee Ap & Lateral W/Obliqu es Three Views Completed 11/05/201947697 Inject/Drain Joint/Bursa Major C ompleted 11/05/2019 Inject/Drain [...] 8:30 am - Spencer Clemons MD at [place] Functional Status Description No Information Available Mental Status Description No Information Available Referrals Refer to Reason for Referral Status Appt Date Castro Clemons MD SURGERY PER BANDAR AT [facility] APPRO MARIELY FOR TOTAL RT KNEE([id number]) TO SURGERY 04/11/20 RECEIVED WRITTEN AUTH Created [employer], [address] [place] [address] [phone]
--- OUTSIDE RECORDS SUMMARY | 2020-05-26 15:35 | CCD | Continuity of Care Document ---
Author Author Shelton [facility] Organization Unknown Address [address] [place] [address] Phone [phone] Care Team Providers Care Computer System Specialist Name Role Phone Olga Martin [facility] AUTM Problems Description No Information [...] Result H/L Range Note Prothrombin Time/Inr 03/24/2020 [facility] entr [address] [place] [address] (353)- - Prothrombin Time 13.6 seconds Normal 12.5-14.3 Inr 1.02 Normal 1 Complete Blood Count 03/24/2020 [facility] C entr [address] [place] [address] (315)- - White Blood Count 6.5 10 [...] % Normal 0-0 Laboratory test finding 03/24/2020 [facility] l Centr [address] [place] [address] (315)- - Erythrocyte Sedimentation Rate 3 mm/hr Normal 0-20 Comprehensive Metabolic Profil 03/24/2020 [facility] [address] [place] [address] (315)- - Glucose, Fasting 90 mg/dL Normal [...] Little GFR Left ESRD GFR <15 on SUPERVISOR DITCHING Procedures Date Code Description Status 05/23/2020 57638 Therapeutic Procedure, Each 15 M inutes Completed 05/23/2020 24917 Therapeutic Procedure, Each 15 M inutes Completed 05/20/2020 94498 Therapeutic Procedure, Each 15 M inutes Completed 05/20/2020 86240 Therapeutic Procedure, Each 15 M inutes Completed 05/18/2020 13423 Therapeutic Procedure, Each 15 M inutes Completed 05/18/2020 82562 Therapeutic Procedure, Each 15 M inutes Completed 05/16/2020 80063 Therapeutic Procedure, Each 15 M inutes Completed 05/16/2020 24308 Therapeutic Procedure, Each 15 M inutes Completed 05/13/2020 70515 Therapeutic Procedure, Each 15 M inutes Completed 05/13/2020 81077 Therapeutic Procedure, Each 15 M inutes Completed 05/11/2020 38188 Therapeutic Procedure, Each 15 M inutes Completed 05/11/2020 67328 Therapeutic Procedure, Each 15 M inutes Completed 05/09/2020 88901 Therapeutic Procedure, Each 15 M inutes Completed 05/09/2020 38102 Therapeutic Procedure, Each 15 M inutes Completed 05/06/2020 21417 Therapeutic Procedure, Each 15 M inutes Completed 05/06/2020 38561 Therapeutic Procedure, Each 15 M inutes Completed 05/04/2020 14084 Physical Therapy Eval - Low Comp lexity Completed 04/20/2020 81359 Arthroplasty "Total Knee" Medial & Lateral W/ Or W/O Patella Resu Completed 04/20/2020 32956 Arthroplasty "Total Knee" Medial & Lateral W/ Or W/O Patella Resu Completed 01/15/2020 17857 X-Ray Knee Ap & Lateral W/Obliqu es Three Views Completed 01/15/2020 97468 X-Ray Knee Ap & Lateral W/Obliqu es [...] of knee Assessments Date Code Description Provider 05/23/2020 Z47.1 Aftercare following joint replac ement [...] joint replac ement surgery Tracy Benson, [facility] 05/16/2020 Z96.651 Presence of right artificial kne e joint Tracy Benson, [facility] 05/13/2020 Z47.1 Aftercare following joint replac ement [...] following joint replac ement surgery Tracy Jimenesdonis, [facility] 05/06/2020 Z47.1 Aftercare following joint replac ement surgery Janina Horne PA-C 05/06/2020 Z96.651 Presence of right artificial kne e joint Tracy Benson, [facility] 05/06/2020 Z96.651 Presence of right artificial kne e joint Janina Horne PA-C 05/04/2020 Z47.1 Aftercare following joint replac ement surgery Tracy Jimenesdonis, [facility] 05/04/2020 Z96.651 Presence of right artificial kne e joint Tracy Benson, [facility] 04/20/2020 M17.11 Unilateral primary osteoarthriti s, right knee Judy Elizabeth 04/20/2020 M17.11 Unilateral primary osteoarthriti s, right knee Spencer Clemons MD 04/18/2020 Z01.818 Encounter for other preprocedura l examination Janina Horne PA-C 04/18/2020 M17.11 Unilateral primary osteoarthriti s, right knee Janina Horne PA-C 01/15/2020 M17.0 Bilateral primary osteoarthritis of knee Spencer Clemons MD Plan of Treatment Future Appointment(s):* 05/27/2020 10:00 am - Trang Sanchez P.T.AGem at Physical Therapy * 06/03/2020 10:30 am - Janina Horne PA-C at [place] Functional Status Description No Information Available Mental Status Description No Information Available Referrals Refer to Reason for Referral Status Appt Date Castro Clemons MD PT BASED ON MED. [facility] AND Mena TYLER HAVE A $25 COPAY TO PT DEPT. NT Created [address] [place] [address], [address] [place] [address] [phone] Castro Clemons MD SURGERY PER BANDAR AT [facility] APPRO MARIELY FOR TOTAL RT KNEE([id number]) TO SURGERY 04/11/20 RECEIVED WRITTEN AUTH Created [address] [place] [address], [address] [address] [phone]
--- OUTSIDE RECORDS SUMMARY | 2020-05-26 15:35 | CCD | Continuity of Care Document ---
Author Author Shelton SANCHEZ Organization Unknown Address [address] [address] Phone [phone] Care Team Providers Care Motor Teacher Name Role Phone Olga Martin RPA AUTM [...] Result H/L Range Note Prothrombin Time/Inr 03/24/2020 [facility] entr [address] [place] [address] (831)- - Prothrombin Time 13.6 seconds Normal 12.5-14.3 Inr 1.02 Normal 1 Complete Blood Count 03/24/2020 [facility] C entr [address] [place] [address] (315)- - White Blood Count 6.5 10 [...] % Normal 0-0 Laboratory test finding 03/24/2020 [facility] l Centr [address] [place] [address] (315)- - Erythrocyte Sedimentation Rate 3 mm/hr Normal 0-20 Comprehensive Metabolic Profil 03/24/2020 [facility] [address] [place] [address] (315)- - Glucose, Fasting 90 mg/dL Normal [...] Little GFR Left ESRD GFR <15 on [facility] HAND Procedures Date Code Description Status 05/25/2020 52098 Therapeutic Procedure, Each 15 M inutes Completed 05/23/2020 98297 Therapeutic Procedure, Each 15 M inutes Completed 05/23/2020 91844 Therapeutic Procedure, Each 15 M inutes Completed 05/20/2020 28939 Therapeutic Procedure, Each 15 M inutes Completed 05/20/2020 79272 Therapeutic Procedure, Each 15 M inutes Completed 05/18/2020 87460 Therapeutic Procedure, Each 15 M inutes Completed 05/18/2020 93286 Therapeutic Procedure, Each 15 M inutes Completed 05/16/2020 98324 Therapeutic Procedure, Each 15 M inutes Completed 05/16/2020 79033 Therapeutic Procedure, Each 15 M inutes Completed 05/13/2020 84027 Therapeutic Procedure, Each 15 M inutes Completed 05/13/2020 09914 Therapeutic Procedure, Each 15 M inutes Completed 05/11/2020 44562 Therapeutic Procedure, Each 15 M inutes Completed 05/11/2020 87660 Therapeutic Procedure, Each 15 M inutes Completed 05/09/2020 34834 Therapeutic Procedure, Each 15 M inutes Completed 05/09/2020 62340 Therapeutic Procedure, Each 15 M inutes Completed 05/06/2020 69142 Therapeutic Procedure, Each 15 M inutes Completed 05/06/2020 16892 Therapeutic Procedure, Each 15 M inutes Completed 05/04/2020 10759 Physical Therapy Eval - Low Comp lexity Completed 04/20/2020 27556 Arthroplasty "Total Knee" Medial & Lateral W/ Or W/O Patella Resu Completed 04/20/2020 81057 Arthroplasty "Total Knee" Medial & Lateral W/ Or W/O Patella Resu Completed 01/15/2020 63312 X-Ray Knee Ap & Lateral W/Obliqu es Three Views Completed 01/15/2020 13741 X-Ray Knee Ap & Lateral W/Obliqu es [...] following joint replac ement surgery Tracy Benson, [facility] 05/25/2020 Z96.651 Presence of right artificial kne e joint Tracy Benson, [facility] 05/23/2020 Z47.1 Aftercare following joint replac [...] following joint replac ement surgery Tracy Benson, [facility] 05/16/2020 Z96.651 Presence of right artificial kne e joint Tracy Benson, [facility] 05/13/2020 Z47.1 Aftercare following joint replac [...] following joint replac ement surgery Tracy Benson, [facility] 05/06/2020 Z47.1 Aftercare following joint replac ement surgery Janina Horne PA-C 05/06/2020 Z96.651 Presence of right artificial kne e joint Tracy Benson, [facility] 05/06/2020 Z96.651 Presence of right artificial kne e joint Janina Horne PA-C 05/04/2020 Z47.1 Aftercare following joint replac ement surgery Tracy Benson, [facility] 05/04/2020 Z96.651 Presence of right artificial kne e joint Tracy Benson, [facility] 04/20/2020 M17.11 Unilateral primary osteoarthriti s, [...] 10:30 am - Janina Horne PA-C at [facility] Functional Status Description No Information Available Mental Status Description No Information Available Referrals Refer to Dr Reason for Referral Status Appt Date Castro Clemons MD PT BASED ON MED. [facility] AND Mena TYLER HAVE A $25 COPAY TO PT DEPT. NT Created [address] [place] [phone] Castro Clemons MD SURGERY PER BANDAR AT [facility] FOR TOTAL RT KNEE([id number]) TO SURGERY 04/11/20 RECEIVED WRITTEN AUTH Created [address] [place] [phone]
--- OUTSIDE RECORDS SUMMARY | 2020-05-26 15:35 | CCD ---
Continuity of Care Document (CCD) Created on: 04/28/2020 Shelton Enciso External Reference #: [id number] : 1955 Sex: Male Author Author Shelton GONZALES P.A. Organization Unknown Address [address] [place] [address] Phone [phone] Care Team Providers Care Blanket Cutter Hand Name Role Phone Olga Martin RPA AUTM [...] Result H/L Range Note Prothrombin Time/Inr 03/24/2020 [facility] entr [address] [place] [address] (315)- - Prothrombin Time 13.6 seconds Normal 12.5-14.3 Inr 1.02 Normal 1 Complete Blood Count 03/24/2020 [facility] C entr [address] [place] [address] (315)- - White Blood Count 6.5 10 [...] % Normal 0-0 Laboratory test finding 03/24/2020 [facility] l Centr [address] [place] [address] (315)- - Erythrocyte Sedimentation Rate 3 mm/hr Normal 0-20 Comprehensive Metabolic Profil 03/24/2020 [facility] [address] [place] [address] (315)- - Glucose, Fasting 90 mg/dL Normal [...] Little GFR Left ESRD GFR <15 on [employer] Procedures Date Code Description Status 04/20/2020 28156 Arthroplasty "Total Knee" Medial & Lateral W/ Or W/O Patella Resu Completed 04/20/2020 99739 Arthroplasty "Total Knee" Medial & Lateral W/ Or W/O Patella Resu Completed 01/15/2020 06525 X-Ray Knee Ap & Lateral W/Obliqu es Three Views Completed 01/15/2020 71061 X-Ray Knee Ap & Lateral W/Obliqu es Three Views Completed 11/05/201925395 Inject/Drain Joint/Bursa Major C ompleted 11/05/2019 Inject/Drain [...] 8:30 am - Spencer Clemons MD at [place] Functional Status Description No Information Available Mental Status Description No Information Available Referrals Refer to Reason for Referral Status Appt Date Castro Clemons MD SURGERY PER BANDAR AT [facility] FOR TOTAL RT KNEE([id number]) TO SURGERY 04/11/20 RECEIVED WRITTEN AUTH Created [facility], [address] [place] [address] [phone]
--- OUTSIDE RECORDS SUMMARY | 2020-05-26 15:36 | CCD ---
Author Author [facility] Organization [facility] Address Unknown Phone Unavailable Care Team Providers Care Retail Sales Specialist Name Role Phone Olga Martin Unavailable PROBLEMS Type Condition ICD9-CM Code CQT03-FO Code Onset Dates Condition S tatus SNOMED Code Notes Problem Epididymal cyst N50.3 Active 31949099 Problem Primary osteoarthritis of right knee M17.11 Act carmen [id number] Problem Annual physical exam Z00.00 Active 758306889 Problem Cigarette nicotine dependence without complication F17.210 Active 45398500 Problem Pure hypercholesterolemia E78.00 Active 167816 004 ALLERGIES No Known Allergies ENCOUNTERS from 1955 to 2020-04-19 Encounter Location Date Provider Diagnosis [facility] [address] [place] [address] 10 Mar, 2020 Mar fay Martin Pre- op evaluation Z01.818 ; Primary osteoarthritis of right knee M17.11 ; Cigarette nicotine dependence without complication F17.210 and Encounter for immunization Z23 IMMUNIZATIONS Vaccine Route Administration Date Status Influenza (18 yrs & older) Flublok IM Intramuscular Mar 31, 2020 Administered Influenza (18 yrs & older) Flublok IM Intramuscular Jun 04, 2019 Administered Pneumococcal Adult 0.5mL (Pneumovax 23) IM Intramuscular Jan 22, 2017 Administered SOCIAL HISTORY Tobacco Use: Social History Observation Description Date Details (start date - stop date) Former Smoker Sex Assigned At : Social History Observation Description Sex Assigned At Unknown Education: Question Answer Notes Level of Education: Finished High School Audit Question Answer Notes Total Score: 4 Interpretation: Alcohol Education Sexual Hx: Question Answer Notes Had sex in the last 12 months (vaginal, oral, or anal)? No Drug and Alcohol Question Answer Notes Total Score: 0 Interpretation: No problems reported Alcohol Screening: Question Answer Notes Did you have a drink containing alcohol in the past year? Ye s Points 2 Interpretation Negative How often did you have six or more drinks on one occas ion in the past year? Never (0 points) How many drinks did you have on a typica l day when you were drinking in the past year? 1 or 2 (0 points) How often did you have a drink containing alcohol in t he past year? Two to four times a month (2 points) BMI Care Goal Follow-Up Question Answer Notes Above Normal BMI Follow-Up Dietary management educatio n, guidance, and counseling Tobacco Use: Question Answer Notes Are you a: former smoker quit 06/2019, smoked for 20 years, less than 1 ppd. REASON FOR REFERRAL No Information VITAL SIGNS Weight 227 lbs Mar, Height 6'1" in Mar, BMI 29.95 kg/m2 Mar, Heart Rate 60 /min Mar, Respiratory Rate 18 /min Mar, Temperature 97.4 degrees Fahrenheit Mar, Oximetry 100 Mar, Blood pressure systolic 120 mm Hg Mar, Blood pressure diastolic 78 mm Hg Mar, MEDICATIONS Medication SIG (Take, Route, Frequency, Duration) Notes Start Da te End Date Status Aspir-81 81 MG 1 tablet Orally Once a day Not-Taking Simvastatin 40 MG 1 tablet in the evening Orally Once a day for 90 day(s) May, Active Meloxicam 15 MG 1 tablet Orally Once a day for 90 day(s) 2 5 May, 2018 Active PROCEDURES from 1955 to 2020-04-19 Procedure Date Ordered Result Body Site Immunization: Flublok Quadrivalent (18 years & older) 0.5mL IM (Influenza) 2020-03-31 N/A RESULTS No Results REASON FOR VISIT right total knee MEDICAL (GENERAL) HISTORY Type Description Date Medical History [place] Medical History hyperlipidemia Surgical History tonsilectomy, lymph node as a child Surgical History colonoscopy lindsay Arshad diverticulosi s 05/31 Goals Section No Information Health Concerns No Information MEDICAL EQUIPMENT No Information MENTAL STATUS No Information FUNCTIONAL STATUS No Information ASSESSMENTS Encounter Date Diagnosis Assessment Notes Treatment Notes Treatm ent Clinical Notes Mar, Pre-op evaluation (ICD-10 - Z01.818) I discussed the risks vs. benefits of surgery with the patient in generic terms. I feel that he is at average risk for perioperative complications. He knows that there is always some risk with surgery and he has to be comfortable that, for him, the benefits of surgery outweigh the risks in order to proceed. If he has further questions regarding the specifics of the proposed surgical procedure and specific risks, he should discuss them with the surgeon. I feel that the patient's acute and chronic medical conditions are fully optimized at the present time. There are no readily alterable factors that could lower the patient's perioperative risk. I have recommended the patient stop all medications as recommended by their surgeon and anesthesia. In addition I recommend stopped Meloxicam and ASA 1 week before surgery, no zocor the day of surgery. CBC, BMP, PT/INR, CXR and EKG done on 03/24/2020 are within limits appropriate to proceed with surgery. Mar, Primary osteoarthritis of right knee (ICD-10 - M 17.11) Mar, Cigarette nicotine dependenc e without complication (ICD-10 - F17.210) Mar, Encounter for immunization (ICD-10 - Z23) PLAN OF TREATMENT Treatment Notes Assessment Notes Clinical Notes Pre-op evaluation I discussed the risks vs. be nefits of surgery with the patient in generic terms. I feel that he is at average risk for perioperative complications. He knows that there is always some risk with surgery and he has to be comfortable that, for him, the benefits of surgery outweigh the risks in order to proceed. If he has further questions regarding the specifics of the proposed surgical procedure and specific risks, he should discuss them with the surgeon.I feel that the patient's acute and chronic medical conditions are fully optimized at the present time. There are no readily alterable factors that could lower the patient's perioperative risk.I have recommended the patient stop all medications as recommended by their surgeon and anesthesia. In addition I recommend stopped Meloxicam and ASA 1 week before surgery, no zocor the day of surgery.CBC, BMP, PT/INR, CXR and EKG done on 03/24/2020 are within limits appropriate to proceed with surgery. Next Appt Details prn Reason: Insurance Providers Payer Name Payer Address Payer Phone Insured Name Patient Relati onship to Insured Coverage Start Date Coverage End Date [facility] [id number] [facility] [id number] rick beard
--- OUTSIDE RECORDS SUMMARY | 2020-05-26 15:36 | CCD ---
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 Name Role Phone [facility] Viky [facility], PA-C Unavailable Unavailabl e Fish, [facility], PA-C Unavailable Unavailabl e Fish, [facility], PA-C Unavailable Unavailabl e Fish, [facility], PA-C Unavailable Unavailabl e Fish, [facility], PA-C Unavailable Unavailabl e Fish, [facility], PA-C Unavailable Unavailabl e Fish, [facility], PA-C Unavailable Unavailabl e Fish, [facility], PA-C Unavailable Unavailabl e Fish, [facility], PA-C Unavailable Unavailabl e Fish, [facility], PA-C Unavailable Unavailabl e Fish, [facility], PA-C Unavailable Unavailabl e Fish, [facility], PA-C Unavailable Unavailabl e Fish, [facility], PA-C Unavailable Unavailabl e Fish, [facility], PA-C Unavailable Unavailabl e Fish, [facility], PA-C Unavailable Unavailabl e Fish, [facility], PA-C Unavailable Unavailabl e Fish, [facility], PA-C Unavailable Unavailabl e Fish, [facility], PA-C Unavailable Unavailabl e Fish, [facility], PA-C Unavailable Unavailabl e Fish, Viky Janina [facility], PA-C Unavailable Unavailabl e Fish, [facility] Unavailable Unavailabl e Fish, [facility] Unavailable Unavailabl e Fish, [facility] Unavailable Unavailabl e Fish, [facility], [facility]C Unavailable Unavailabl e Fish, [facility], [facility]C Unavailable Unavailabl e Fish, Viky [facility], PA-C Unavailable Unavailabl e Fish, Viky [facility], PA-C Unavailable Unavailabl e Fish, [facility], [facility]C Unavailable Unavailabl e Fish, [facility], [facility] Unavailable Unavailabl e Fish, Viky [facility], PA-C Unavailable Unavailabl e Fish, [facility], [facility] Unavailable Unavailabl e Fish, [facility], [facility]C Unavailable Unavailabl e Fish, [facility], [facility]C Unavailable Unavailabl e Titus, M Barratt PA Unavailable Unavailable Titus, M Barratt PA Unavailable Unavailable Titus, M Barratt PA Unavailable Unavailable Titus, M Barratt PA Unavailable Unavailable Titus, M Barratt PA Unavailable Unavailable Titus, M Barratt PA Unavailable Unavailable Titus, M Barratt PA Unavailable Unavailable Titus, M Barratt PA Unavailable Unavailable Titus, M Barratt PA Unavailable Unavailable Titus, M Barratt PA Unavailable Unavailable Titus, M Barratt PA Unavailable Unavailable Titus, M Barratt PA Unavailable Unavailable Titus, M Barratt PA Unavailable Unavailable Titus, M Barratt PA Unavailable Unavailable Titus, M Barratt PA Unavailable Unavailable Titus, M Barratt PA Unavailable Unavailable Titus, M Barratt PA Unavailable Unavailable Titus, M Barratt PA Unavailable Unavailable Titus, M Barratt PA Unavailable Unavailable Titus, M Barratt PA Unavailable Unavailable Titus, M Barratt PA Unavailable Unavailable Titus, M Barratt PA Unavailable Unavailable Titus, M Barratt PA Unavailable Unavailable Titus, M Barratt PA Unavailable Unavailable Titus, M Barratt PA Unavailable Unavailable Titus, M Barratt PA Unavailable Unavailable Titus, M Barratt PA Unavailable Unavailable Castro Clemons MD Unavailable Unavailable Castro Clemons MD Unavailable Unavailable Castro Clemons MD Unavailable Unavailable Castro Clemons MD Unavailable Unavailable Castro Clemons MD Unavailable Unavailable Castro Clemons MD Unavailable Unavailable Castro Clemons MD Unavailable Unavailable Castro Clemons MD Unavailable Unavailable Castro Clemons MD Unavailable Unavailable Castro Clemons MD Unavailable Unavailable Castro Clemons MD Unavailable Unavailable Castro Clemons MD Unavailable Unavailable Castro Clemons MD Unavailable Unavailable Castro Clemons MD Unavailable Unavailable Castro Clemons MD Unavailable Unavailable Castro Clemons MD Unavailable Unavailable Castro Clemons MD Unavailable Unavailable Castro Clemons MD Unavailable Unavailable Castro Clemons MD Unavailable Unavailable Castro Clemons MD Unavailable Unavailable Castro Clemosn MD Unavailable Unavailable Castro Clemons MD Unavailable Unavailable Castro Clemons MD Unavailable Unavailable Castro Clemons MD Unavailable Unavailable Castro Clemons MD Unavailable Unavailable Castro Clemons MD Unavailable Unavailable Castro Clemons MD Unavailable Unavailable Castro Clemons MD Unavailable Unavailable Castro Clemons MD Unavailable Unavailable Castro Clemons MD Unavailable Unavailable Castro Clemons MD Unavailable Unavailable Castro Clemons MD Unavailable Unavailable Castro Clemons MD Unavailable Unavailable Castro Clemons MD Unavailable Unavailable Castro Clemons MD Unavailable Unavailable Castro Clemons MD Unavailable Unavailable Castro Clemons MD Unavailable Unavailable Castro Clemons MD Unavailable Unavailable Castro Clemons MD Unavailable Unavailable Castro Clemons MD Unavailable Unavailable Castro Clemons MD Unavailable Unavailable Castro Clemons MD Unavailable Unavailable Overholt, T Mario PA Unavailable Unavailable Overholt, T Mario PA Unavailable Unavailable Overholt, T Mario PA Unavailable Unavailable Overholt, T Mario PA Unavailable Unavailable Overholt, T Mario PA Unavailable Unavailable Overholt, T Mario PA Unavailable Unavailable Overholt, T Mario PA Unavailable Unavailable Overholt, T Mario PA Unavailable Unavailable Overholt, T Mario PA Unavailable Unavailable Overholt, T Mario PA Unavailable Unavailable Overholt, T Mario PA Unavailable Unavailable Overholt, T Mario PA Unavailable Unavailable Overholt, T Mario PA Unavailable Unavailable Overholt, T Mario PA Unavailable Unavailable Overholt, T Mario PA Unavailable Unavailable Re-disclosure Warning The records that you are about to access may contain information from federally-assisted alcohol or drug abuse programs. If such information is present, then the following federally mandated warning applies: This information has been disclosed to you from records protected by federal confidentiality rules (42 CFR part 2). The federal rules prohibit you from making any further disclosure of this information unless further disclosure is expressly permitted by the written consent of the person to whom it pertains or as otherwise permitted by 42 CFR part 2. A general authorization for the release of medical or other information is NOT sufficient for this purpose. The Federal rules restrict any use of the information to criminally investigate or prosecute any alcohol or drug abuse patient.The records that you are about to access may contain highly sensitive health information, the redisclosure of which is protected by Article 27-F of the [facility] Public Health law. If you continue you may have access to information: Regarding HIV / AIDS; Provided by facilities licensed or operated by the [facility] Office of Mental Health; or Provided by the [facility] Office for People With Developmental Disabilities. If such information is present, then the following [facility] mandated warning applies: This information has been disclosed to you from confidential records which are protected by state law. State law prohibits you from making any further disclosure of this information without the specific written consent of the person to whom it pertains, or as otherwise permitted by law. Any unauthorized further disclosure in violation of state law may result in a fine or usp sentence or both. A general authorization for the release of medical or other information is NOT sufficient authorization for further disc losure. Family History Family Member Name Family Member Gender Family Member Status Date o f Status Description Data Source(s) Unknown Male Problem [facility] ([facility]) Encounters Encounter Providers Location Date Indications Data Source(s ) Office Visit Attender: Janina THOMPSON PA-C Physical Therapy 05/06/2020 08:45:00 AM EST [facility] ([facility]) Unknown [address] [facility] [place] [address] 04/19/2020 12:00:00 AM EST eCW1 ([facility]) Office Visit Attender: Janina THOMPSON PA-C Physical Therapy 04/18/2020 09:00:00 AM EST [facility] ([facility]) Unknown [address] [facility] [address] 04/18/2020 12:00:00 AM EST eCW1 ([facility]) Office Visit, Est Pt., Level 4 PC [address] [place] [address] 03/31/2020 12:00:00 AM EST eCW1 ([facility]) Office Visit Attender: Castro Clemons MD Physical Therap y 01/15/2020 09:15:00 AM EDT [facility] ([facility]) Unknown [address] [facility] [address] 11/11/2019 12:00:00 AM EDT eCW1 ([facility]) Office Visit Attender: Pancho PEREA Physical Therapy 03:30:00 PM EDT [facility] ([facility]) Office Visit Attender: Pancho PEREA Physical Therapy 03:45:00 PM EDT [facility] ([facility]) Office Visit Attender: Pancho PEREA Physical Therapy 01:15:00 PM EDT [facility] ([facility]) Outpatient Attender: Pancho PEREA Physical Therapy 11:00:00 AM EDT [facility] ([facility]) [facility] [address] [facility] [place] [address] 06/04/2019 12:00:00 AM EST eCW1 ([facility]) [facility] [address] [place] [address] 05/27/2019 12:00:00 AM EST eCW1 ([facility]) Outpatient Attender: Mario PEREA Physical Therapy 10:15:00 AM EST [facility] ([facility]) [facility] [address] [facility] [address] 05/18/2019 12:00:00 AM EST eCW1 ([facility]) [facility] [address] [facility] [address] 04/28/2019 12:00:00 AM EST eCW1 ([facility]) Immunizations Vaccine Date Status Description Data Source(s) influenza, recombinant, quadrIvalent,injectable, prese rvative free 03/31/2020 04:48:00 PM EST completed eCW1 ([facility]) influenza, recombinant, quadrIvalent,injectable, prese rvative free 03/31/2020 04:48:00 PM EST completed eCW1 ([facility]) influenza, recombinant, quadrIvalent,injectable, prese rvative free 03/31/2020 04:48:00 PM EST completed eCW1 ([facility]) influenza, recombinant, quadrIvalent,injectable, prese rvative free 03/31/2020 04:48:00 PM EST completed eCW1 ([facility]) influenza, recombinant, quadrIvalent,injectable, prese rvative free 06/04/2019 04:34:00 PM EST completed eCW1 ([facility]) influenza, recombinant, quadrIvalent,injectable, prese rvative free 06/04/2019 04:34:00 PM EST completed eCW1 ([facility]) influenza, recombinant, quadrIvalent,injectable, prese rvative free 06/04/2019 04:34:00 PM EST completed eCW1 ([facility]) influenza, recombinant, quadrIvalent,injectable, prese rvative free 06/04/2019 04:34:00 PM EST completed eCW1 ([facility]) influenza, recombinant, quadrIvalent,injectable, prese rvative free 06/04/2019 04:34:00 PM EST completed eCW1 ([facility]) influenza, recombinant, quadrIvalent,injectable, prese rvative free 06/04/2019 04:34:00 PM EST completed eCW1 ([facility]) Medications Medication Brand Name Start Date Product Form Dose Route Admi nistrative Instructions Pharmacy Instructions Status Indications Reaction Description Data Source(s) 10 mg 04/21/2020 12:00:00 AM EST tablet 12 TAKE ONE TABLET BY MOUTH EVERY DAY TAKE ONE TABLET BY MOUTH EVERY DAY SOLD: 04/21/2020 [facility] Acetaminophen 325 MG / Oxycodone Hydrochloride 5 MG Or al Tablet 5-325 mg OXYCODONE HCL/ACETAMINOPHEN 04/21/2020 12:00:00 AM EST tablet 30 TAKE ONE TO TWO TABLETS BY MOUTH EVERY 4 HOURS NEEDED FOR PAIN MAXIMUM DAILY DOSE = 8 TAKE ONE TO TWO TABLETS BY MOUTH EVERY 4 HOURS NEEDED FOR PAIN MAXIMUM DAILY DOSE = 8 SOLD: 04/21/2020 [facility] 2 % 02/25/2020 12:00:00 AM EST ointment 22 APPLY A PEA SIZED AMOUNT TO NASAL PASSAGES THREE TIMES A DAY FOR 5 DAYS BEFORE SURGERY APPLY A PEA SIZED AMOUNT TO NASAL PASSAGES THREE TIMES A DAY FOR 5 DAYS BEFORE SURGERY SOLD: 03/01/2020 [facility] chlorhexidine gluconate 40 MG/ML Medicated Liquid Soap [Hibi clens] Hibiclens 02/24/2020 12:00:00 AM EST completed [facility] ([facility]) Mupirocin 0.02 MG/MG Topical Ointment [Bactroban] Bactroban 02/24/2020 12:00:00 AM EST completed [facility] ([facility]) 2 ML Sodium Hyaluronate 10 MG/ML Prefilled Syringe [Euflexxa ] Euflexxa 10/21/2019 12:00:00 AM EDT completed [facility] ([facility]) 40 mg 08/10/2019 12:00:00 AM EDT tablet 30 TAKE 1 TABLET BY MOUTH IN THE EVENING TAKE 1 TABLET BY MOUTH IN THE EVENING SOLD: 12/15/2019 [facility] Simvastatin 40 MG Oral Tablet SIMVASTATIN 08/10/2019 12:00:00 AM EDT tablet 90 TAKE 1 TABLET BY MOUTH IN THE EVENING TAKE 1 TABLET BY MOUTH IN THE EVENING SOLD: 08/11/2019 [facility] 40 mg 08/10/2019 12:00:00 AM EDT tablet 30 TAKE 1 TABLET BY MOUTH IN THE EVENING TAKE 1 TABLET BY MOUTH IN THE EVENING SOLD: 01/20/2020 [facility] 40 mg 08/10/2019 12:00:00 AM EDT tablet 30 TAKE 1 TABLET BY MOUTH IN THE EVENING TAKE 1 TABLET BY MOUTH IN THE EVENING SOLD: 02/25/2020 [facility] 40 mg 08/10/2019 12:00:00 AM EDT tablet 30 TAKE 1 TABLET BY MOUTH IN THE EVENING TAKE 1 TABLET BY MOUTH IN THE EVENING SOLD: 04/13/2020 [facility] 15 mg 06/05/2019 12:00:00 AM EST tablet 90 TAKE ONE TABLET BY MOUTH EVERY DAY TAKE ONE TABLET BY MOUTH EVERY DAY SOLD: 11/04/2019 [facility] 15 mg 06/05/2019 12:00:00 AM EST tablet 90 TAKE ONE TABLET BY MOUTH EVERY DAY TAKE ONE TABLET BY MOUTH EVERY DAY SOLD: 06/08/2019 [facility] 15 mg 06/05/2019 12:00:00 AM EST tablet 90 TAKE ONE TABLET BY MOUTH EVERY DAY TAKE ONE TABLET BY MOUTH EVERY DAY SOLD: 02/25/2020 [facility] Simvastatin 40 MG Oral Tablet SIMVASTATIN 07/24/2018 12:00:00 AM EDT tablet 90 TAKE 1 TABLET BY MOUTH IN THE EVENING TAKE 1 TABLET BY MOUTH IN THE EVENING SOLD: 05/13/2019 [facility] Insurance Providers Payer name Policy type / Coverage type Policy ID Covered constitution party ID Covered constitution party's relationship to jones Policy Jones Plan Information [facility] [id number] [place] [id number] [facility] [id number] [place]2 [id number] [facility] (pr) Commercial [id number] Family Dependent Y1 [id number] ANSI-Commercial [id number] ANSI-Commercial [id number] ANSI-Commercial [id number] [employer] [id number] HU2 [id number] [employer] [id number] 01 [id number] [employer]/P [id number] 01 [id number] [employer] UNAVAILABLE UNAVAILA BLE [id number] Problems, Conditions, and Diagnoses Code Display Name Description Problem Type Effective Dates Data Source(s) M17.11 [id number] Primary osteoarthritis of right knee P roblem 03/31/2020 12:00:00 AM EST eCW1 ([facility]) N50.3 Epididymal cyst Epididymal cyst Problem 05/27/2019 12:0 0:00 AM EST eCW1 ([facility]) N50.3 Epididymal cyst Epididymal cyst Problem 05/27/2019 12:0 0:00 AM EST eCW1 ([facility]) Surgeries/Procedures Procedure Description Date Indications Data Source(s) THERAPEUTIC PX 1/> AREAS EACH 15 MIN EXERCISES 12:00:00 AM EST [facility] ([facility]) THERAPEUTIC PX 1/> AREAS EACH 15 MIN EXERCISES 12:00:00 AM EST [facility] ([facility] THERAPEUTIC PX 1/> AREAS EACH 15 MIN EXERCISES 12:00:00 AM EST [facility] ([facility] ) THERAPEUTIC PX 1/> AREAS EACH 15 MIN EXERCISES 12:00:00 AM EST [facility] ([facility] ) THERAPEUTIC PX 1/> AREAS EACH 15 MIN EXERCISES 12:00:00 AM EST [facility] ([facility] ) THERAPEUTIC PX 1/> AREAS EACH 15 MIN EXERCISES 12:00:00 AM EST [facility] ([facility] ) THERAPEUTIC PX 1/> AREAS EACH 15 MIN EXERCISES 12:00:00 AM EST [facility] ([facility] ) THERAPEUTIC PX 1/> AREAS EACH 15 MIN EXERCISES 12:00:00 AM EST [facility] ([facility] ) THERAPEUTIC PX 1/> AREAS EACH 15 MIN EXERCISES 12:00:00 AM EST [facility] ([facility] ) THERAPEUTIC PX 1/> AREAS EACH 15 MIN EXERCISES 12:00:00 AM EST [facility] ([facility] ) THERAPEUTIC PX 1/> AREAS EACH 15 MIN EXERCISES 021 12:00:00 AM EST [facility] ([facility] ) THERAPEUTIC PX 1/> AREAS EACH 15 MIN EXERCISES 12:00:00 AM EST [facility] ([facility] ) THERAPEUTIC PX 1/> AREAS EACH 15 MIN EXERCISES 021 12:00:00 AM EST [facility] ([facility]) THERAPEUTIC PX 1/> AREAS EACH 15 MIN EXERCISES 12:00:00 AM EST [facility] ([facility]) THERAPEUTIC PX 1/> AREAS EACH 15 MIN EXERCISES 021 12:00:00 AM EST [facility] ([facility]) THERAPEUTIC PX 1/> AREAS EACH 15 MIN EXERCISES 12:00:00 AM EST [facility] ([facility]) THERAPEUTIC PX 1/> AREAS EACH 15 MIN EXERCISES 021 12:00:00 AM EST [facility] ([facility]) Physical Therapy Eval - Low Complexity 05/04/2020 12:0 0:00 AM EST [facility] ([facility]) ARTHRP KNE CONDYLE&PLATU MEDIAL&LAT CMPRTS 04/20/2020 12:00:00 AM EST [facility] ([facility]) ARTHRP KNE CONDYLE&PLATU MEDIAL&LAT CMPRTS 04/20/2020 12:00:00 AM EST [facility] ([facility]) Immunization: Flublok Quadrivalent (18 years & older) 0.5mL IM (Influenza) 03/31/2020 12:00:00 AM EST eCW1 ([facility]) RADIOLOGIC EXAMINATION KNEE 3 VIEWS 01/15/2020 12:00:0 0 AM EDT [facility] ([facility]) RADIOLOGIC EXAMINATION KNEE 3 VIEWS 01/15/2020 12:00:0 0 AM EDT [facility] ([facility]) RADIOLOGIC EXAMINATION KNEE 3 VIEWS 01/15/2020 12:00:0 0 AM EDT [facility] ([facility]) ARTHROCENTESIS ASPIR&/INJECTION MAJOR JT/BURSA 12:00:00 AM EDT [facility] ([facility]) ARTHROCENTESIS ASPIR&/INJECTION MAJOR JT/BURSA 12:00:00 AM EDT [facility] ([facility]) ARTHROCENTESIS ASPIR&/INJECTION MAJOR JT/BURSA 12:00:00 AM EDT [facility] ([facility]) ARTHROCENTESIS ASPIR&/INJECTION MAJOR JT/BURSA 12:00:00 AM EDT [facility] ([facility] ) ARTHROCENTESIS ASPIR&/INJECTION MAJOR JT/BURSA 12:00:00 AM EDT [facility] ([facility] ) ARTHROCENTESIS ASPIR&/INJECTION MAJOR JT/BURSA 12:00:00 AM EDT [facility] ([facility]) RIV4 VACC RECOMBINANT DNA IM 06/04/2019 12:00:00 AM ES T eCW1 ([facility]) IMMUNIZATION ADMIN 06/04/2019 12:00:00 AM EST eCW1 ([facility]) Results ID Date Data Source [id number] 04/17/2020 09:30:00 AM EST [facility] Name Value Range Interpretation Code Description Data Abena rce(s) Supporting Document(s) SARS coronavirus 2 RNA [facility] This lab was ordered by [facility] and reported by [facility]. ID Date Data Source [id number] 03/24/2020 08:45:00 AM EST [facility] ([facility]) Name Value Range Interpretation Code Description Data Abena rce(s) Supporting Document(s) Glucose, Fasting 90 mg/dL 70-100 [facility] ([facility]) Blood Urea Nitrogen 10 mg/dL 7-18 [facility] ([facility] ) Creatinine For GFR 0.89 mg/dL 0.70-1.30 [facility] ([facility]) Glomerular Filtration Rate Laboratory test result [facility] ([facility]) <content>Units are mL/min/1.73 m2</content>
<content></content>
<content>Chronic Kidney Disease Staging per NKF:</content>
<content></content>
<content>Stage I & II GFR >=60 Normal to Mildly Decreased</content>
<content>Stage III GFR 30- 59 Moderately Decreased</content>
<content>Stage IV GFR 15-29 Severely Decreased</content>
<content>Stage V GFR <15 Very Little GFR Left</content>
<content>ESRD GFR <15 on IMMIGRATION JUDGE</content>
<content></content> Sodium Level 140 meq/L 136-145 [facility] ([facility]) Potassium Serum 4.3 meq/L 3.5-5.1 [facility] ([facility]) Carbon Dioxide Level 28 meq/L 21-32 [facility] Chloride Level 106 meq/L 98-107 [facility] ([facility]) Anion Gap 6 meq/L 8-16 [facility] ([facility] Calcium Level 8.8 mg/dL 8.8-10.2 [facility]) Ast/Sgot 17 U/L 7-37 [facility] ([facility]) Alt/SGPT 35 U/L 12-78 [facility] ([facility]) Bilirubin,Total 0.7 mg/dL 0.2-1.0 [facility] ([facility]) Alkaline Phosphatase 52 U/L 45-117 [facility] ( [facility]) Total Protein 6.9 GM/DL 6.4-8.2 [facility] ([facility]) Albumin/Globulin Ratio 1.3 [facility] ([facility]) Albumin 3.9 GM/DL 3.2-5.2 [facility] ([facility]) ID Date Data Source [id number] 03/24/2020 08:45:00 AM EST [facility] ([facility]) Name Value Range Interpretation Code Description Data Abena rce(s) Supporting Document(s) Erythrocyte sedimentation rate by Westergren method 3 mm/hr 0-20 [facility] ([facility]) ID Date Data Source [id number] 03/24/2020 08:45:00 AM EST [facility] ([facility]) Name Value Range Interpretation Code Description Data Abena rce(s) Supporting Document(s) White Blood Count 6.5 10 4.0-10.0 [facility] ([facility]) Hemoglobin 15.5 g/dL 13.5-17.5 [facility] ([facility]) Red Blood Count 5.02 10 4.30-6.10 [facility] ([facility]) Mean Corpuscular Volume 91.2 fl 80.0-96.0 M EDENT ([facility]) Hematocrit 45.8 % 42.0-52.0 [facility] Mean Corpuscular HGB Conc 33.8 g/dL 32.0-36.5 [facility] ([facility]) Mean Corpuscular Hemoglobin 30.9 pg 27.0-33.0 [facility] ([facility]) Red Cell Distribution Width 12.7 % 11.5-14.5 [facility] ([facility]) Platelet Count, Automated 211 10 150-450 [facility] ([facility]) Nucleated Red Blood Cell % 0.0 % 0-0 [facility] ([facility]) ID Date Data Source [id number] 03/24/2020 08:45:00 AM EST [facility] ([facility]) Name Value Range Interpretation Code Description Data Abena rce(s) Supporting Document(s) Inr 1.02 [facility] ([facility]) THERAPUTIC HUMAN INR VALUES INDICATIONS NORMAL RANGES PROPHYLAXIS/TREATMENT OF: VENOUS THROMBOSIS 2.0-3.0 PULMONARY EMBOLISM 2.0-3.0 PREVENTION OF SYSTEMIC EMBOLISM FROM: TISSUE HEART VALVES 2.0-3.0 ACUTE MYOCARDIAL INFARCTION 2.0-3.0 VALVULAR HEART DISEASE 2.0-3.0 ATRIAL FIBRILLATION 2.0-3.0 MECHANICAL VALVES(HIGH RISK) 2.5-3.5 RECURRENT MYOCARDIAL INFARCTION 2.5-3.5 Prothrombin Time 13.6 s 12.5-14.3 [facility]) ID Date Data Source [id number] 01/07/2020 12:00:00 AM EDT 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) Name Value Range Interpretation Code Description Data Abena rce(s) Supporting Document(s) SARS-CoV2 Rapid Antigen MENDOZA SAMSON ([facility]) This lab was ordered by [facility] are and reported by [facility]. ID Date Data Source [id number] 05/29/2019 08:15:00 AM EST [facility] ([facility]) Name Value Range Interpretation Code Description Data Abena rce(s) Supporting Document(s) Erythrocyte sedimentation rate by Westergren method 2 mm/hr 0-20 [facility] ([facility]) C reactive protein [Mass/volume] in Serum or Plasma by High sensitivity method Laboratory test result 0.00-0.30 [facility] ([facility]) ID Date Data Source [id number] 05/29/2019 08:15:00 AM EST [facility]) Name Value Range Interpretation Code Description Data Abena rce(s) Supporting Document(s) Lyme Disease IgG/IgM Antibodie Laboratory test result 0.00-0.90 [facility]) <content>Negative <0.91</content >
<content>Equivocal 0.91 - 1.09</content>
<content>Positive >1.09</content>
<content></content> Lyme Disease IgM Ab Quantitati 0.90 index 0.00-0.79 [facility]) <content>Negative <0.80</content >
<content>Equivocal 0.80 - 1.19</content>
<content>Positive >1.19</content>
<content>.</content>
<content>IgM levels may peak at 3-6 weeks post infection, then</content>
<content>gradually decline.</content>
<content></content> Lyme Disease IgG Ab 93 kDa Ban Laboratory test result [facility]) Lyme Disease IgG Ab 66 kDa Ban Laboratory test result [facility]) Lyme Disease IgG Ab 58 kDa Ban Laboratory test result [facility]) Lyme Disease IgG Ab 45 kDa Ban Laboratory test result [facility]) Lyme Disease IgG Ab 39 kDa Ban Laboratory test result [facility]) Lyme Disease IgG Ab 41 kDa Ban Laboratory test result Abnormal (applies to non-numeric results) [facility] ([facility]) Lyme Disease IgG Ab 28 kDa Ban Laboratory test result [facility]) Lyme Disease IgG Ab 30 kDa Ban Laboratory test result [facility]) Lyme Disease IgG Ab 18 kDa Ban Laboratory test result [facility]) Lyme Disease IgG Ab 23 kDa Ban Laboratory test result [facility]) Lyme Disease IgG West Blot Int Laboratory test result [facility]) Positive: 5 of the following Borrelia-specific bands: 18,23,28,30,39,41,45,58, 66, and 93. Negative: No bands or banding patterns which do not meet positive criteria. Lyme Disease IgM Ab 41 kDa Ban Laboratory test result Abnormal (applies to non-numeric results) [facility] ([facility] ) Lyme Disease IgM Ab 39 kDa Ban Laboratory test result [facility] ([facility] ) Lyme Disease IgM Ab 23 kDa Ban Laboratory test result [facility] ([facility]) Lyme Disease IgM West Blot Int Laboratory test result [facility] ([facility]) Note: An equivocal or positive EIA resul t followed by a negative Line Blot result is considered NEGATIVE. An equivocal or positive EIA result followed by a positive Line Blot is considered POSITIVE by the CDC. . Positive: 2 of the following bands: 23,39 or 41 Negative: No bands or banding patterns which do not meet positive criteria. Criteria for positivity are those recommended by CDC/ASTPHLD. p23=Osp C, s70=ipsmhfmqh . Note: Sera from individuals with the following may cross react in the Lyme Line Blot assays: other spirochetal diseases (periodontal disease, leptospirosis, rel apsing fever, yaws, and pinta); connective autoimmune (Rheumatoid Arthritis and Systemic Lupus Erythematosus and also individuals with Antinuclear Antibody); other infections ([place] Spotted Fever; Ruslan-Prabhakar Virus, and Cytomegalovirus). . Performed at: - [id number] Machine Whitener: Jannie Suarez MD, Phone: [phone] Procedure Social History Code Duration Value Status Description Data Source(s ) Smoking 03/31/2020 12:00:00 AM EST Former Smoker completed Former Smoker eCW1 ([facility]) Smoking 03/31/2020 12:00:00 AM EST Former Smoker completed Former Smoker eCW1 ([facility]) Smoking 03/31/2020 12:00:00 AM EST Former Smoker completed Former Smoker eCW1 ([facility]) Smoking 03/31/2020 12:00:00 AM EST Former Smoker completed Former Smoker eCW1 ([facility]) Smoking 06/04/2019 12:00:00 AM EST Current Smoker completed Curre nt Smoker eCW1 ([facility]) Vital Signs ID Date Data Source UNK Name Value Range Interpretation Code Description Data Source(s) Body temperature 96.2 [degF] 96.2 [degF] [facility] ([facility]) Respiratory rate 12 /min 12 /min [facility] ( [facility]) Body mass index (BMI) [Ratio] 27.9 kg/m2 27.9 k g/m2 [facility] ([facility]) Body weight 217.00 [lb_av] 217.00 [lb_av] MEDEN T ([facility]) Body height 74 [in_i] 74 [in_i] [facility] ([facility]) 6'2" Body temperature 96.8 [degF] 96.8 [degF] [facility] ([facility]) Heart rate 86 /min 86 /min [facility] ([facility]) Diastolic blood pressure 42 mm[Hg] 42 mm[Hg] [facility] ([facility]) Systolic blood pressure 138 mm[Hg] 138 mm[Hg] M EDENT ([facility]) Diastolic blood pressure 78 mm[Hg] 78 mm[Hg] eCW1 ([facility]) Systolic blood pressure 120 mm[Hg] 120 mm[Hg] e CW1 ([facility]) Body temperature 97.4 [degF] 97.4 [degF] eCW1 ( [facility]) Respiratory rate 18 /min 18 /min eCW1 ([facility]) Heart rate 60 /min 60 /min eCW1 ([facility]) Body mass index (BMI) [Ratio] 29.95 kg/m2 29.95 kg/m2 W1 ([facility]) Body height [in_i] eCW1 ([facility]) Body weight 227 [lb_av] 227 [lb_av] eCW1 ([facility]) Diastolic blood pressure 78 mm[Hg] 78 mm[Hg] eCW1 ([facility]) Systolic blood pressure 120 mm[Hg] 120 mm[Hg] e CW1 ([facility]) Body temperature 97.4 [degF] 97.4 [degF] eCW1 ( [facility]) Respiratory rate 18 /min 18 /min eCW1 ([facility]) Heart rate 60 /min 60 /min eCW1 ([facility]) Body mass index (BMI) [Ratio] 29.95 kg/m2 29.95 kg/m2 eCW1 ([facility]) Body height [in_i] eCW1 ([facility]) Body weight 227 [lb_av] 227 [lb_av] eCW1 ([facility]) Body mass index (BMI) [Ratio] 27.6 kg/m2 27.6 k g/m2 [facility] ([facility]) Body weight 212.00 [lb_av] 212.00 [lb_av] MEDEN T ([facility]) Body height 73.5 [in_i] 73.5 [in_i] [facility] ([facility]) 6'1.50" Body temperature 96.8 [degF] 96.8 [degF] [facility] ([facility]) Diastolic blood pressure 82 mm[Hg] 82 mm[Hg] eCW1 ([facility]) Systolic blood pressure 140 mm[Hg] 140 mm[Hg] e CW1 ([facility]) Body temperature 97.8 [degF] 97.8 [degF] eCW1 ( [facility]) Respiratory rate 18 /min 18 /min eCW1 ([facility]) Heart rate 77 /min 77 /min eCW1 ([facility]) Body mass index (BMI) [Ratio] 27.44 kg/m2 27.44 kg/m2 eCW1 ([facility]) Body height [in_us] eCW1 ([facility]) Body weight Measured 208 [lb_av] 208 [lb_av] eC W1 ([facility]) Diastolic blood pressure mm[Hg] eCW1 ([facility]) Systolic blood pressure 152 mm[Hg] 152 mm[Hg] e CW1 ([facility]) Body temperature 97.5 [degF] 97.5 [degF] eCW1 ( [facility]) Respiratory rate 18 /min 18 /min eCW1 ([facility]) Heart rate 63 /min 63 /min eCW1 ([facility]) Body mass index (BMI) [Ratio] 27.57 kg/m2 27.57 kg/m2 eCW1 ([facility]) Body height [in_us] eCW1 ([facility]) Body weight Measured 209 [lb_av] 209 [lb_av] eC W1 ([facility]) Diastolic blood pressure 84 mm[Hg] 84 mm[Hg] eCW1 ([facility]) Systolic blood pressure 122 mm[Hg] 122 mm[Hg] e CW1 ([facility]) Body temperature 96.9 [degF] 96.9 [degF] eCW1 ( [facility]) Respiratory rate 18 /min 18 /min eCW1 ([facility]) Heart rate 91 /min 91 /min eCW1 ([facility]) Body mass index (BMI) [Ratio] 26.78 kg/m2 26.78 kg/m2 W1 ([facility]) Body height [in_us] eCW1 ([facility]) Body weight Measured 203.0 [lb_av] 203.0 [lb_av ] W1 ([facility])
--- OUTSIDE RECORDS SUMMARY | 2020-05-26 15:36 | CCD ---
Author Author [facility] Organization [facility] Address Unknown Phone Unavailable Care Team Providers Care [facility] Program Coordinator Name Role Phone Olga Martin Unavailable PROBLEMS Type Condition ICD9-CM Code NNK08-AG Code Onset Dates Condition S tatus SNOMED Code Notes Problem Epididymal cyst N50.3 Active 94181280 Problem Primary osteoarthritis of right knee M17.11 Act carmen [id number] Problem Annual physical exam Z00.00 Active 797847292 Problem Cigarette nicotine dependence without complication F17.210 Active 80595327 Problem Pure hypercholesterolemia E78.00 Active 462340 004 ALLERGIES No Known Allergies ENCOUNTERS from 1955 to 2020-04-19 Encounter Location Date Provider Diagnosis [facility] [id number] [place] [address] Mar, Amanda Martin IMMUNIZATIONS Vaccine Route Administration Date Status Influenza [...] REASON FOR REFERRAL No Information VITAL SIGNS No information MEDICATIONS Medication SIG (Take, Route, Frequency, Duration) Notes Start Da te End Date Status Aspir-81 81 MG 1 tablet Orally Once a day Not-Taking Simvastatin 40 MG 1 tablet in the evening Orally Once a day for 90 day(s) May, Active Meloxicam 15 MG 1 tablet Orally Once a day for 90 day(s) 2 May, Active PROCEDURES No Information RESULTS No Results REASON FOR VISIT lock 03/31 note MEDICAL (GENERAL) HISTORY Type Description Date Medical History fox dep Medical History hyperlipidemia Surgical History tonsilectomy, lymph node as a child Surgical History colonoscopy Jeancarlos, mod diverticulosi s 05/31 Goals Section No Information Health Concerns No Information MEDICAL EQUIPMENT No Information MENTAL STATUS No Information FUNCTIONAL STATUS No Information ASSESSMENTS No Information PLAN OF TREATMENT No Information Insurance Providers Payer Name Payer Address Payer Phone Insured Name Patient Relati onship to Insured Coverage Start Date Coverage End Date [facility] [id number] [address] [phone] rick beard
[2020-05-26 16:41] VITALS: BP 164/108
--- OUTSIDE RECORDS SUMMARY | 2020-05-26 16:53 | CCD ---
Author Author [facility] Organization [facility] Address Unknown Phone Unavailable Care Team Providers Care Counter Sales Representative Name Role Phone [facility], PA-C Unavailable Unavailabl e Fish, [facility], PA-C Unavailable Unavailabl e Fish, [facility], PA-C Unavailable Unavailabl e Fish, [facility], PA-C Unavailable Unavailabl e Fish, [facility], PA-C Unavailable Unavailabl e Fish, [facility], PA-C Unavailable Unavailabl e Fish, [facility], PA-C Unavailable Unavailabl e Fish, [facility], PA-C Unavailable Unavailabl e Fish, [facility], PA-C Unavailable Unavailabl e Fish, [facility], PA-C Unavailable Unavailabl e Fish, [facility], PA-C Unavailable Unavailabl e Fish, [facility], PA-C Unavailable Unavailabl e Fish, [facility], PA-C Unavailable Unavailabl e Fish, [facility], PA-C Unavailable Unavailabl e Fish, [facility], PA-C Unavailable Unavailabl e Fish, [facility], PA-C Unavailable Unavailabl e Fish, [facility], PA-C Unavailable Unavailabl e Fish, [facility], PA-C Unavailable Unavailabl e Fish, [facility], PA-C Unavailable Unavailabl e Fish, Viky Janina [facility], PA-C Unavailable Unavailabl e Fish, [facility] Unavailable Unavailabl e Fish, [facility] Unavailable Unavailabl e Fish, [facility] Unavailable Unavailabl e Fish, [facility], [facility] Unavailable Unavailabl e Fish, [facility], [facility] Unavailable Unavailabl e Fish, [facility], PA-C Unavailable Unavailabl e Fish, [facility], PA-C Unavailable Unavailabl e Fish, [facility], [facility] Unavailable Unavailabl e Fish, [facility], [facility] Unavailable Unavailabl e Fish, [facility], PA-C Unavailable Unavailabl e Fish, [facility], [facility] Unavailable Unavailabl e Fish, [facility], [facility] Unavailable Unavailabl e Fish, [facility], [facility] Unavailable Unavailabl e Titus, M Barratt [...] Unavailable Castro Clemons MD Unavailable Unavailable Castro Celmons MD Unavailable Unavailable Castro Clemons MD Unavailable [...] is protected by Article 27-F of the [facility] Public Health law. If you continue you may have access to information: Regarding HIV / AIDS; Provided by facilities licensed or operated by the [facility] Office of Mental Health; or Provided by the [facility] Office for People With Developmental Disabilities. If such information is present, then the following [facility] mandated warning applies: This information has [...] law may result in a fine or chcf sentence or both. A general authorization for the release of medical or other information is NOT sufficient authorization for further disc losure. Family History Family Member Name Family Member Gender Family Member Status Date o f Status Description Data Source(s) Unknown Male Problem MEDENT ([facility]) Encounters Encounter Providers Location Date Indications Data Source(s ) Office Visit Attender: Janina THOMPSON PA-C Physical Therapy 05/06/2020 08:45:00 AM EST MEDENT ([facility]) Unknown [address] [facility] [address] 04/19/2020 12:00:00 AM EST eCW1 ([facility]) Office Visit Attender: Janina THOMPSON PA-C Physical Therapy 04/18/2020 09:00:00 AM EST MEDENT ([facility]) Unknown [address] [facility] [address] 04/18/2020 12:00:00 AM EST eCW1 ([facility]) Office Visit, Est Pt., Level 4 PC [address] [place] [address] 03/31/2020 12:00:00 AM EST eCW1 ([facility]) Office Visit Attender: Castro Clemons MD Physical Therap y 01/15/2020 09:15:00 AM EDT MEDENT ([facility]) Unknown [address] [facility] [address] 11/11/2019 12:00:00 AM EDT eCW1 ([facility]) Office Visit Attender: Pancho PEREA Physical [...] EDT MEDENT ([facility]) [facility] [place] [address] [facility] [place] [address] 06/04/2019 12:00:00 AM EST eCW1 ([facility]) [facility] [address] [place] [address] 05/27/2019 12:00:00 AM EST eCW1 ([facility]) Outpatient Attender: Mario PEREA Physical Therapy 10:15:00 AM EST MEDENT ([facility]) [facility] [place] [address] [facility] [address] 05/18/2019 12:00:00 AM EST eCW1 ([facility]) [facility] [address] [facility] [address] 04/28/2019 12:00:00 AM EST eCW1 ([facility]) Immunizations Vaccine Date Status Description Data Source(s) influenza, recombinant, quadrIvalent,injectable, prese rvative free 03/31/2020 04:48:00 PM EST completed eCW1 ([facility]) influenza, recombinant, quadrIvalent,injectable, prese rvative free 03/31/2020 04:48:00 PM EST completed eCW1 ([facility]) influenza, recombinant, quadrIvalent,injectable, prese rvative free 03/31/2020 04:48:00 PM EST completed eCW1 ([facility]) influenza, recombinant, quadrIvalent,injectable, prese rvative free 03/31/2020 04:48:00 PM EST completed eCW1 ([facility]) influenza, recombinant, quadrIvalent,injectable, prese rvative free 06/04/2019 04:34:00 PM EST completed eCW1 ([facility]) influenza, recombinant, quadrIvalent,injectable, prese rvative free 06/04/2019 04:34:00 PM EST completed eCW1 ([facility]) influenza, recombinant, quadrIvalent,injectable, prese rvative free 06/04/2019 04:34:00 PM EST completed eCW1 ([facility]) influenza, recombinant, quadrIvalent,injectable, prese rvative free 06/04/2019 04:34:00 PM EST completed eCW1 ([facility]) influenza, recombinant, quadrIvalent,injectable, prese rvative free 06/04/2019 04:34:00 PM EST completed eCW1 ([facility]) influenza, recombinant, quadrIvalent,injectable, prese rvative free 06/04/2019 04:34:00 PM EST completed eCW1 ([facility]) Medications Medication Brand Name Start Date Product [...] Hibiclens 02/24/2020 12:00:00 AM EST completed MED[facility] ([facility]) Mupirocin 0.02 MG/MG Topical Ointment [Bactroban] Bactroban 02/24/2020 12:00:00 AM EST completed MED[facility] ([facility]) 2 ML Sodium Hyaluronate 10 MG/ML Prefilled Syringe [Euflexxa ] Euflexxa 10/21/2019 12:00:00 AM EDT completed MEDENT ([facility]) 40 mg 08/10/2019 12:00:00 [...] type / Coverage type Policy ID Covered libertarian ID Covered libertarian's relationship to jones Policy Jones Plan Information [facility] [id number] WI2 [id number] [facility] [id number] WI2 [id number] [facility] (pr) Commercial [id number] Family Dependent Y1 [id number] ANSI-Commercial [id number] ANSI-Commercial [id number] ANSI-Commercial [id number] [employer] [id number] HU2 [id number] [employer] [id number] [employer]-O/P [id number] 01 [id number] [employer]/P UNAVAILABLE UNAVAILA BLE [id number] Problems, Conditions, and Diagnoses Code Display Name Description Problem Type Effective Dates Data Source(s) M17.11 [id number] Primary osteoarthritis of right knee P roblem 03/31/2020 12:00:00 AM EST eCW1 ([facility]) N50.3 Epididymal cyst Epididymal cyst Problem 05/27/2019 12:0 0:00 AM EST eCW1 ([facility]) N50.3 Epididymal cyst Epididymal cyst Problem 05/27/2019 12:0 0:00 AM EST eCW1 ([facility]) Surgeries/Procedures Procedure Description Date Indications Data Source(s) THERAPEUTIC PX 1/> AREAS EACH 15 MIN EXERCISES 12:00:00 AM EST MEDENT ([facility]) THERAPEUTIC PX 1/> AREAS EACH 15 MIN EXERCISES 12:00:00 AM EST MED[facility] ([facility] ) THERAPEUTIC PX 1/> AREAS EACH 15 MIN EXERCISES 12:00:00 AM EST MED[facility] ([facility] ) THERAPEUTIC PX 1/> AREAS EACH 15 MIN EXERCISES 12:00:00 AM EST MED[facility] ([facility] ) THERAPEUTIC PX 1/> AREAS EACH 15 MIN EXERCISES 12:00:00 AM EST MED[facility] ([facility] ) THERAPEUTIC PX 1/> AREAS EACH 15 MIN EXERCISES 12:00:00 AM EST MED[facility] ([facility] ) THERAPEUTIC PX 1/> AREAS EACH 15 MIN EXERCISES 12:00:00 AM EST MED[facility] ([facility] ) THERAPEUTIC PX 1/> AREAS EACH 15 MIN EXERCISES 12:00:00 AM EST MED[facility] ([facility] ) THERAPEUTIC PX 1/> AREAS EACH 15 MIN EXERCISES 12:00:00 AM EST MED[facility] ([facility] ) THERAPEUTIC PX 1/> AREAS EACH 15 MIN EXERCISES 12:00:00 AM EST MED[facility] ([facility] ) THERAPEUTIC PX 1/> AREAS EACH 15 MIN EXERCISES 021 12:00:00 AM EST MED[facility] ([facility] ) THERAPEUTIC PX 1/> AREAS EACH 15 MIN EXERCISES 12:00:00 AM EST MED[facility] ([facility] ) THERAPEUTIC PX 1/> AREAS EACH 15 MIN EXERCISES 021 12:00:00 AM EST MED[facility] ([facility]) THERAPEUTIC PX 1/> AREAS EACH 15 MIN EXERCISES 12:00:00 AM EST MED[facility] ([facility]) THERAPEUTIC PX 1/> AREAS EACH 15 MIN EXERCISES 021 12:00:00 AM EST MED[facility] ([facility]) THERAPEUTIC PX 1/> AREAS EACH 15 MIN EXERCISES 12:00:00 AM EST MED[facility] ([facility]) THERAPEUTIC PX 1/> AREAS EACH 15 MIN EXERCISES 021 12:00:00 AM EST MEDENT ([facility]) Physical Therapy Eval - Low Complexity 05/04/2020 12:0 0:00 AM EST MED[facility] ([facility]) ARTHRP KNE CONDYLE&PLATU MEDIAL&LAT CMPRTS 04/20/2020 12:00:00 AM EST MEDENT ([facility]) ARTHRP KNE CONDYLE&PLATU MEDIAL&LAT CMPRTS 04/20/2020 12:00:00 AM EST MEDENT ([facility]) Immunization: Flublok Quadrivalent (18 years & older) 0.5mL IM (Influenza) 03/31/2020 12:00:00 AM EST eCW1 ([facility]) RADIOLOGIC EXAMINATION KNEE 3 VIEWS 01/15/2020 12:00:0 0 AM EDT MEDENT ([facility]) RADIOLOGIC EXAMINATION KNEE 3 VIEWS 01/15/2020 12:00:0 0 AM EDT MEDENT ([facility]) RADIOLOGIC EXAMINATION KNEE 3 VIEWS 01/15/2020 12:00:0 0 AM EDT MEDENT ([facility]) ARTHROCENTESIS ASPIR&/INJECTION MAJOR JT/BURSA 12:00:00 AM EDT MEDENT ([facility]) ARTHROCENTESIS ASPIR&/INJECTION MAJOR JT/BURSA 12:00:00 AM EDT MEDENT ([facility]) ARTHROCENTESIS ASPIR&/INJECTION MAJOR JT/BURSA 12:00:00 AM EDT MEDENT ([facility]) ARTHROCENTESIS ASPIR&/INJECTION MAJOR JT/BURSA 12:00:00 AM EDT MED[facility] ([facility] ) ARTHROCENTESIS ASPIR&/INJECTION MAJOR JT/BURSA 12:00:00 AM EDT MED[facility] ([facility] ) ARTHROCENTESIS ASPIR&/INJECTION MAJOR JT/BURSA 12:00:00 AM EDT MEDENT ([facility]) RIV4 VACC RECOMBINANT DNA IM 06/04/2019 12:00:00 AM ES T eCW1 ([facility]) IMMUNIZATION ADMIN 06/04/2019 12:00:00 AM EST eCW1 ([facility]) Results ID Date Data Source [id number] 04/17/2020 09:30:00 AM EST [facility] Name Value Range Interpretation Code Description Data Abena rce(s) Supporting Document(s) SARS coronavirus 2 RNA [facility] This lab was ordered by [facility] and reported by [facility]. ID Date Data Source [id number] 03/24/2020 08:45:00 AM EST MEDENT ([facility]) Name Value Range Interpretation Code Description Data Abena rce(s) Supporting Document(s) Glucose, Fasting 90 mg/dL 70-100 MED[facility] ([facility]) Blood Urea Nitrogen 10 mg/dL 7-18 MED[facility] ([facility] ) Creatinine For GFR 0.89 mg/dL 0.70-1.30 MED[facility] ([facility]) Glomerular Filtration Rate Laboratory test result [facility] ([facility]) <content>Units are mL/min/1.73 m2</content>
<content></content>
<content>Chronic Kidney Disease Staging per NKF:</content>
<content></content>
<content>Stage I & II GFR >=60 Normal to Mildly Decreased</content>
<content>Stage III GFR 30- 59 Moderately Decreased</content>
<content>Stage IV GFR 15-29 Severely Decreased</content>
<content>Stage V GFR <15 Very Little GFR Left</content>
<content>ESRD GFR <15 on FURNACE PROCESS SUPERVISOR</content>
<content></content> Sodium Level 140 meq/L 136-145 [facility] ([facility]) Potassium Serum 4.3 meq/L 3.5-5.1 [facility] ([facility]) Carbon Dioxide Level 28 meq/L 21-32 [facility]) Chloride Level 106 meq/L 98-107 [facility] ([facility]) Anion Gap 6 meq/L 8-16 [facility]) Calcium Level 8.8 mg/dL 8.8-10.2 [facility]) Ast/Sgot 17 U/L 7-37 [facility] ([facility]) Alt/SGPT 35 U/L 12-78 [facility] ([facility]) Bilirubin,Total 0.7 mg/dL 0.2-1.0 [facility] ([facility]) Alkaline Phosphatase 52 U/L 45-117 [facility] ( [facility]) Total Protein 6.9 GM/DL 6.4-8.2 [facility] ([facility]) Albumin/Globulin Ratio 1.3 [facility] ([facility]) Albumin 3.9 GM/DL 3.2-5.2 [facility] ([facility]) ID Date Data Source [id number] 03/24/2020 08:45:00 AM EST MED[facility] ([facility]) Name Value Range Interpretation Code Description Data Abena rce(s) Supporting Document(s) Erythrocyte sedimentation rate by Westergren method 3 mm/hr 0-20 MED[facility] ([facility]) ID Date Data Source [id number] 03/24/2020 08:45:00 AM EST MED[facility] ([facility]) Name Value Range Interpretation Code Description Data Abena rce(s) Supporting Document(s) White Blood Count 6.5 10 4.0-10.0 [facility] ([facility]) Hemoglobin 15.5 g/dL 13.5-17.5 [facility] ([facility]) Red Blood Count 5.02 10 4.30-6.10 [facility] ([facility]) Mean Corpuscular Volume 91.2 fl 80.0-96.0 M EDENT ([facility]) Hematocrit 45.8 % 42.0-52.0 [facility] Mean Corpuscular HGB Conc 33.8 g/dL 32.0-36.5 MED[facility] ([facility]) Mean Corpuscular Hemoglobin 30.9 pg 27.0-33.0 [facility] ([facility]) Red Cell Distribution Width 12.7 % 11.5-14.5 [facility] ([facility]) Platelet Count, Automated 211 10 150-450 MED[facility] ([facility]) Nucleated Red Blood Cell % 0.0 % 0-0 [facility] ([facility]) ID Date Data Source [id number] 03/24/2020 08:45:00 AM EST MED[facility] ([facility]) Name Value Range Interpretation Code Description Data Abena rce(s) Supporting Document(s) Inr 1.02 MED[facility] ([facility]) THERAPUTIC HUMAN INR VALUES INDICATIONS NORMAL RANGES PROPHYLAXIS/TREATMENT OF: VENOUS THROMBOSIS 2.0-3.0 PULMONARY EMBOLISM 2.0-3.0 PREVENTION OF SYSTEMIC EMBOLISM FROM: TISSUE HEART VALVES 2.0-3.0 ACUTE MYOCARDIAL INFARCTION 2.0-3.0 VALVULAR HEART DISEASE 2.0-3.0 ATRIAL FIBRILLATION 2.0-3.0 MECHANICAL VALVES(HIGH RISK) 2.5-3.5 RECURRENT MYOCARDIAL INFARCTION 2.5-3.5 Prothrombin Time 13.6 s 12.5-14.3 [facility]) ID Date Data Source [id number] 01/07/2020 12:00:00 AM EDT CHARTMAKER ([facility]) Name Value Range Interpretation Code Description Data Abena rce(s) Supporting Document(s) SARS-CoV2 Rapid Antigen MENDOZA SAMSON ([facility]) This lab was ordered by [facility] and reported by [facility]. ID Date Data Source [id number] 05/29/2019 08:15:00 AM EST MED[facility] ([facility]) Name Value Range Interpretation Code Description Data Abena rce(s) Supporting Document(s) Erythrocyte sedimentation rate by Westergren method 2 mm/hr 0-20 [facility] C reactive protein [Mass/volume] in Serum or Plasma by High sensitivity method Laboratory test result 0.00-0.30 [facility] ([facility]) ID Date Data Source [id number] 05/29/2019 08:15:00 AM EST [facility]) Name Value Range Interpretation Code Description Data Abena rce(s) Supporting Document(s) Lyme Disease IgG/IgM Antibodie Laboratory test result 0.00-0.90 [facility]) <content>Negative <0.91</content >
<content>Equivocal 0.91 - 1.09</content>
<content>Positive >1.09</content>
<content></content> Lyme Disease IgM Ab Quantitati 0.90 index 0.00-0.79 [facility]) <content>Negative <0.80</content >
<content>Equivocal 0.80 - 1.19</content>
<content>Positive >1.19</content>
<content>.</content>
<content>IgM levels may peak at 3-6 weeks post infection, then</content>
<content>gradually decline.</content>
<content></content> Lyme Disease IgG Ab 93 kDa Ban Laboratory test result [facility]) Lyme Disease IgG Ab 66 kDa Ban Laboratory test result [facility]) Lyme Disease IgG Ab 58 kDa Ban Laboratory test result [facility]) Lyme Disease IgG Ab 45 kDa Ban Laboratory test result [facility]) Lyme Disease IgG Ab 39 kDa Ban Laboratory test result [facility]) Lyme Disease IgG Ab 41 kDa Ban Laboratory test result Abnormal (applies to non-numeric results) [facility] ([facility]) Lyme Disease IgG Ab 28 kDa Ban Laboratory test result [facility]) Lyme Disease IgG Ab 30 kDa Ban Laboratory test result [facility]) Lyme Disease IgG Ab 18 kDa Ban Laboratory test result [facility]) Lyme Disease IgG Ab 23 kDa Ban Laboratory test result [facility]) Lyme Disease IgG West Blot Int Laboratory test result [facility]) Positive: 5 of the following Borrelia-specific bands: 18,23,28,30,39,41,45,58, 66, and 93. Negative: No bands or banding patterns which do not meet positive criteria. Lyme Disease IgM Ab 41 kDa Ban Laboratory test result Abnormal (applies to non-numeric results) MED[facility] ([facility] ) Lyme Disease IgM Ab 39 kDa Ban Laboratory test result [facility] ([facility] ) Lyme Disease IgM Ab 23 kDa Ban Laboratory test result MED[facility] ([facility]) Lyme Disease IgM West Blot Int Laboratory test result MED[facility] ([facility]) Note: An equivocal or positive EIA resul [...] are those recommended by CDC/ASTPHLD. p23=Osp C, q83=tdoqchtrn . Note: Sera from individuals with the following may cross react in the Lyme Line Blot assays: other spirochetal diseases (periodontal disease, leptospirosis, rel apsing fever, yaws, and pinta); connective autoimmune (Rheumatoid Arthritis and Systemic Lupus Erythematosus and also individuals with Antinuclear Antibody); other infections ([place] Spotted Fever; Ruslan-Prabhakar Virus, and Cytomegalovirus). . Performed at: - [facility] [id number] Environmental Services Associate: Jannie Suarez MD, Phone: [phone] Procedure Social History Code Duration Value Status Description Data Source(s ) Smoking 03/31/2020 12:00:00 AM EST Former Smoker completed Former Smoker eCW1 ([facility]) Smoking 03/31/2020 12:00:00 AM EST Former Smoker completed Former Smoker eCW1 ([facility]) Smoking 03/31/2020 12:00:00 AM EST Former Smoker completed Former Smoker eCW1 ([facility]) Smoking 03/31/2020 12:00:00 AM EST Former Smoker completed Former Smoker eCW1 ([facility]) Smoking 06/04/2019 12:00:00 AM EST Current Smoker completed Curre nt Smoker eCW1 ([facility]) Vital Signs ID Date Data Source UNK Name Value Range Interpretation Code Description Data Source(s) Body temperature 96.2 [degF] 96.2 [degF] [facility] ([facility]) Respiratory rate 12 /min 12 /min MEDENT ( [facility]) Body mass index (BMI) [Ratio] 27.9 kg/m2 27.9 k g/m2 MEDENT ([facility]) Body weight 217.00 [lb_av] 217.00 [lb_av] MEDEN T ([facility]) Body height 74 [in_i] 74 [in_i] MEDENT ([facility]) 6'2" Body temperature 96.8 [degF] 96.8 [degF] MED[facility] ([facility]) Heart rate 86 /min 86 /min MED[facility] ([facility]) Diastolic blood pressure 42 mm[Hg] 42 mm[Hg] MED[facility] ([facility]) Systolic blood pressure 138 mm[Hg] 138 mm[Hg] M EDENT ([facility]) Diastolic blood pressure 78 mm[Hg] 78 mm[Hg] eCW1 ([facility]) Systolic blood pressure 120 mm[Hg] 120 mm[Hg] e CW1 ([facility]) Body temperature 97.4 [degF] 97.4 [degF] eCW1 ( [facility]) Respiratory rate 18 /min 18 /min eCW1 ([facility]) Heart rate 60 /min 60 /min eCW1 ([facility]) Body mass index (BMI) [Ratio] 29.95 kg/m2 29.95 kg/m2 W1 ([facility]) Body height [in_i] eCW1 ([facility]) Body weight 227 [lb_av] 227 [lb_av] eCW1 ([facility]) Diastolic blood pressure 78 mm[Hg] 78 mm[Hg] eCW1 ([facility]) Systolic blood pressure 120 mm[Hg] 120 mm[Hg] e CW1 ([facility]) Body temperature 97.4 [degF] 97.4 [degF] eCW1 ( [facility]) Respiratory rate 18 /min 18 /min eCW1 ([facility]) Heart rate 60 /min 60 /min eCW1 ([facility]) Body mass index (BMI) [Ratio] 29.95 kg/m2 29.95 kg/m2 eCW1 ([facility]) Body height [in_i] eCW1 ([facility]) Body weight 227 [lb_av] 227 [lb_av] eCW1 ([facility]) Body mass index (BMI) [Ratio] 27.6 kg/m2 27.6 k g/m2 MEDENT ([facility]) Body weight 212.00 [lb_av] 212.00 [lb_av] MEDEN T ([facility]) Body height 73.5 [in_i] 73.5 [in_i] MEDENT ([facility]) 6'1.50" Body temperature 96.8 [degF] 96.8 [degF] MED[facility] ([facility]) Diastolic blood pressure 82 mm[Hg] 82 mm[Hg] eCW1 ([facility]) Systolic blood pressure 140 mm[Hg] 140 mm[Hg] e CW1 ([facility]) Body temperature 97.8 [degF] 97.8 [degF] eCW1 ( [facility]) Respiratory rate 18 /min 18 /min eCW1 ([facility]) Heart rate 77 /min 77 /min eCW1 ([facility]) Body mass index (BMI) [Ratio] 27.44 kg/m2 27.44 kg/m2 eCW1 ([facility]) Body height [in_us] eCW1 ([facility]) Body weight Measured 208 [lb_av] 208 [lb_av] eC W1 ([facility]) Diastolic blood pressure mm[Hg] eCW1 ([facility]) Systolic blood pressure 152 mm[Hg] 152 mm[Hg] e CW1 ([facility]) Body temperature 97.5 [degF] 97.5 [degF] eCW1 ( [facility]) Respiratory rate 18 /min 18 /min eCW1 ([facility]) Heart rate 63 /min 63 /min eCW1 ([facility]) Body mass index (BMI) [Ratio] 27.57 kg/m2 27.57 kg/m2 eCW1 ([facility]) Body height [in_us] eCW1 ([facility]) Body weight Measured 209 [lb_av] 209 [lb_av] eC W1 ([facility]) Diastolic blood pressure 84 mm[Hg] 84 mm[Hg] eCW1 ([facility]) Systolic blood pressure 122 mm[Hg] 122 mm[Hg] e CW1 ([facility]) Body temperature 96.9 [degF] 96.9 [degF] eCW1 ( [facility]) Respiratory rate 18 /min 18 /min eCW1 ([facility]) Heart rate 91 /min 91 /min eCW1 ([facility]) Body mass index (BMI) [Ratio] 26.78 kg/m2 26.78 kg/m2 W1 ([facility]) Body height [in_us] eCW1 ([facility]) Body weight Measured 203.0 [lb_av] 203.0 [lb_av ] W1 ([facility])
[2020-05-26] MEDS ORDERED: LIDOCAINE W/EPINEPHRINE 1% 20ML VIAL SC ONE (18:00)
--- NOTE | 2020-05-26 18:11 | REP ---
INDICATION: cut with auger. COMPARISON: Comparison right knee radiographs June 18, 2018.. TECHNIQUE: Five views. FINDINGS: Five views of the right knee demonstrate right knee arthroplasty components in good position. There is fullness in the region of the suprapatellar bursa. On sunrise view, there is a linear calcification in the medial soft tissues of uncertain significance. Dystrophic soft tissue calcification versus chip fracture fragment versus opaque debris. This should be correlated with area of laceration. Chip fracture is felt to be unlikely. No other evidence of fracture.. . . IMPRESSION: Sliver like linear calcific density in the anterior periarticular soft tissues visible on sunrise view medially. Dystrophic calcification versus opaque debris in wound. Less likely chip fracture. Needs to be correlated with area of laceration if any. Right knee arthroplasty components in good position. No other evidence of fracture.. <Electronically signed by Estrada Valencia > 05/26/20 [id number]
[2020-05-26] MEDS ORDERED: AUGM875T28 PO (18:52)
== END 2020-05-26 19:11 | disposition home or self-care (01) ==
LOC: M ED 15:26
DX: S81.011A Laceration without foreign body, right knee, initial encounter (principal); W22.8XXA Striking against or struck by other objects, initial encounter; Y92.019 Unspecified place in single-family (private) house as the place of occurrence of the external cause; Y93.9 Activity, unspecified; Y99.9 Unspecified external cause status; E78.5 Hyperlipidemia, unspecified; Z96.651 Presence of right artificial knee joint; Z79.899 Other long term (current) drug therapy

== ENCOUNTER → 2020-08-30 | Outpatient (REF) | payer MEDICARE, OTHER ==
[~2020-08-30] MED LIST changes: +AUGM875T28 PO
[2020-08-30 16:48] LABS: BASO % 0.4 % (0.0-1.0); EOS # 0.2 10^3/uL (0.0-0.5); EOS % 2.3 % (0.0-3.0); HEMATOCRIT 46.9 % (42.0-52.0); HEMOGLOBIN 15.7 g/dl (13.5-17.5); LYMPH # 2.9 10^3/uL (1.5-5.0); LYMPH % 38.1 % (24.0-44.0); MEAN CORPUSCULAR HEMOGLOBIN 29.3 pg (27.0-33.0); MEAN CORPUSCULAR HGB CONC 33.5 g/dl (32.0-36.5); MEAN CORPUSCULAR VOLUME 87.7 fl (80.0-96.0); MONO # 0.7 10^3/uL (0.0-0.8); NEUTROPHILS # 3.8 10^3/uL (1.5-8.5); NEUTROPHILS % 49.9 % (36.0-66.0); PLATELET COUNT, AUTOMATED 230 10^3/uL (150-450); RED BLOOD COUNT 5.35 10^6/uL (4.30-6.10); WHITE BLOOD COUNT 7.6 10^3/uL (4.0-10.0)
[2020-08-30 17:24] LABS: BLOOD UREA NITROGEN 10 MG/DL (7-18); CARBON DIOXIDE LEVEL 28 MEQ/L (21-32); CHLORIDE LEVEL 105 MEQ/L (98-107); CREATININE FOR GFR 0.76 MG/DL (0.70-1.30); GLOMERULAR FILTRATION RATE > 60.0 (>49); GLUCOSE, FASTING 70 MG/DL (70-100); SODIUM LEVEL 139 MEQ/L (136-145)
[2020-08-30 17:44] LABS: INR 1.06; PROTHROMBIN TIME 14.1 SECONDS (12.5-14.3)
== END ==
LOC: M SFHCADAM 14:49
PROVIDERS: ATTEND Physician Assistant Medical
DX: Z01.818 Encounter for other preprocedural examination (principal); M17.12 Unilateral primary osteoarthritis, left knee

== ENCOUNTER → 2020-08-30 | Outpatient (CLI) | payer MEDICARE, OTHER ==
--- NOTE | 2020-08-30 15:53 | REP ---
INDICATION: PRE OP EVAL. COMPARISON: None. TECHNIQUE: PA and lateral views FINDINGS: The superior mediastinal structures are midline. The heart is not enlarged. There is thoracic aortic tortuosity. Minimal curvilinear densities are seen in the left CP angle. The CP angles are otherwise clear. The lung richardson are otherwise clear. The osseous structures are within normal limits. IMPRESSION: Minimal platelike atelectatic change versus minimal fibrotic change left CP angle. The lung richardson are otherwise clear. Other findings as described above. <Electronically signed by Pablo Ramos > 08/30/20 [id number]
== END ==
LOC: M ADAMS 14:50
PROVIDERS: ATTEND Physician Assistant Medical
DX: Z01.818 Encounter for other preprocedural examination (principal); M17.12 Unilateral primary osteoarthritis, left knee

== ENCOUNTER → 2021-05-15 | Outpatient (REF) | payer MEDICARE, OTHER ==
[2021-05-15 13:39] LABS: BASO % 0.5 % (0.0-1.0); EOS # 0.2 10^3/uL (0.0-0.5); EOS % 3.3 % (0.0-3.0); HEMATOCRIT 44.7 % (42.0-52.0); HEMOGLOBIN 15.2 g/dl (13.5-17.5); LYMPH # 2.6 10^3/uL (1.5-5.0); LYMPH % 39.1 % (24.0-44.0); MEAN CORPUSCULAR HEMOGLOBIN 30.6 pg (27.0-33.0); MEAN CORPUSCULAR VOLUME 89.9 fl (80.0-96.0); MONO # 0.7 10^3/uL (0.0-0.8); MONO % 9.9 % (2.0-8.0); NEUTROPHILS # 3.1 10^3/uL (1.5-8.5); PLATELET COUNT, AUTOMATED 225 10^3/uL (150-450); RED BLOOD COUNT 4.97 10^6/uL (4.30-6.10); WHITE BLOOD COUNT 6.6 10^3/uL (4.0-10.0)
[2021-05-15 14:22] LABS: ALT/SGPT 43 U/L (12-78); BILIRUBIN,TOTAL 0.5 MG/DL (0.2-1.0); BLOOD UREA NITROGEN 14 MG/DL (7-18); CALCIUM LEVEL 9.1 MG/DL (8.8-10.2); CARBON DIOXIDE LEVEL 28 MEQ/L (21-32); CHLORIDE LEVEL 106 MEQ/L (98-107); CHOLESTEROL LEVEL 145 MG/DL (<200); CHOLESTEROL RISK RATIO 4.142 (<5); CREATININE FOR GFR 0.84 MG/DL (0.70-1.30); GLOMERULAR FILTRATION RATE > 60.0 (>49); GLUCOSE, FASTING 97 MG/DL (70-100); HDL CHOLESTEROL 35 MG/DL (>40); LDL CHOLESTEROL 87 MG/DL (<100); NON-HDL-C 110 MG/DL; POTASSIUM SERUM 3.9 MEQ/L (3.5-5.1); SODIUM LEVEL 141 MEQ/L (136-145); TOTAL PROTEIN 7.2 GM/DL (6.4-8.2); TRIGLYCERIDES LEVEL 117 MG/DL (<150)
== END ==
LOC: M SFHCADAM 07:58
PROVIDERS: ATTEND Physician Assistant Medical
DX: Z00.00 Encounter for general adult medical examination without abnormal findings (principal); F17.210 Nicotine dependence, cigarettes, uncomplicated; E78.00 Pure hypercholesterolemia, unspecified

== ENCOUNTER → 2022-04-24 | Outpatient (CLI) | payer MEDICARE, OTHER | LOC: M RAD 11:33 | PROVIDERS: ATTEND Physician Assistant | DX: N50.3 Cyst of epididymis (principal) ==

== ENCOUNTER → 2022-05-08 | Outpatient (CLI) | payer MEDICARE, OTHER ==
[2022-05-08 10:21] LABS: BASO % 0.6 % (0.0-1.0); EOS # 0.2 10^3/uL (0.0-0.5); EOS % 2.4 % (0.0-3.0); HEMATOCRIT 46.8 % (42.0-52.0); HEMOGLOBIN 15.4 g/dl (13.5-17.5); LYMPH # 2.6 10^3/uL (1.5-5.0); LYMPH % 37.6 % (24.0-44.0); MEAN CORPUSCULAR HGB CONC 32.9 g/dl (32.0-36.5); MEAN CORPUSCULAR VOLUME 91.1 fl (80.0-96.0); MONO # 0.5 10^3/uL (0.0-0.8); MONO % 7.4 % (2.0-8.0); NEUTROPHILS # 3.5 10^3/uL (1.5-8.5); NEUTROPHILS % 51.6 % (36.0-66.0); PLATELET COUNT, AUTOMATED 219 10^3/uL (150-450); RED BLOOD COUNT 5.14 10^6/uL (4.30-6.10); WHITE BLOOD COUNT 6.8 10^3/uL (4.0-10.0)
[2022-05-08 10:26] LABS: APPEARANCE, URINE MANUAL CLEAR (CLEAR); COLOR, URINE MANUAL YELLOW (YELLOW)
[2022-05-08 10:28] LABS: BILIRUBIN, URINE MANUAL NEGATIVE (NEGATIVE); GLUCOSE, URINE (UA) MANUAL NEGATIVE (NEGATIVE); KETONE, URINE MANUAL NEGATIVE (NEGATIVE); NITRITE, URINE MANUAL NEGATIVE (NEGATIVE); PROTEIN, URINE MANUAL NEGATIVE (NEGATIVE); UROBILINOGEN, URINE MANUAL NORMAL (NORMAL)
[2022-05-08 10:29] LABS: BLOOD URINE MANUAL NEGATIVE (NEGATIVE); LEUKOCYTE ESTERASE, URINE MAN NEGATIVE (NEGATIVE)
[2022-05-08 10:45] LABS: BLOOD UREA NITROGEN 12 MG/DL (9-23); CALCIUM LEVEL 9.1 MG/DL (8.3-10.6); CARBON DIOXIDE LEVEL 30 MMOL/L (20-31); CHLORIDE LEVEL 104 MMOL/L (98-107); CREATININE FOR GFR 0.71 MG/DL (0.70-1.30); GLOMERULAR FILTRATION RATE > 60.0 (>49); GLUCOSE, FASTING 93 MG/DL (74-106); POTASSIUM SERUM 4.5 MMOL/L (3.5-5.1); SODIUM LEVEL 140 MMOL/L (136-145)
== END ==
LOC: M RAD 09:11
PROVIDERS: ATTEND Physician Assistant
DX: Z01.818 Encounter for other preprocedural examination (principal)

== ENCOUNTER → 2022-05-13 | Outpatient (CLI) | payer MEDICARE, OTHER ==
[~2022-05-13] MED LIST changes: +MULT-90 PO; +OMEG10002 PO; +SIMV40TA20
== END ==
LOC: M LABSMTC 11:16
PROVIDERS: ATTEND Anesthesiology
DX: Z01.818 Encounter for other preprocedural examination (principal)

== ENCOUNTER 2022-05-18 08:22 | Day surgery (SDC) | payer MEDICARE, OTHER ==
[~2022-05-18] VITALS: Ht 185.4 cm; Wt 95.3 kg
[~2022-05-18 08:22] MED LIST changes: +ACETAMINOPHEN 1000MG 100ML IV BAG As Ordered ONE; +LIDOCAINE 2% 100MG/5ML SDV (FOR ANES.) As Ordered ONE; +LR 1,000 ML IV SCH; +MIDAZOLAM INJ 2MG/2ML VIAL As Ordered ONE; +ONDANSETRON 4MG 2ML VIAL As Ordered ONE; +ONDANSETRON 4MG 2ML VIAL IV PRN; +ceFAZolin SOD 2 GM in IV 1 EA IV ONE; +fentaNYL 100 MCG/2 ML INJECTION IV PRN; +fentaNYL 250 MCG/5 ML INJECTION As Ordered ONE; +oxyCODONE 5MG TAB PO PRN; +propofoL 200 MG/20 ML VIAL As Ordered ONE
[2022-05-18] MEDS ORDERED: BACITRACIN OINTMENT 30GM TUBE As Ordered ONE (09:23)
[2022-05-18] MEDS ORDERED: LIDOCAINE 1% SDV 30ML VIAL As Ordered ONE (09:24)
[2022-05-18] MEDS ORDERED: BUPIVACAINE HCL 0.25% 30ML VIAL As Ordered ONE (09:24)
[2022-05-18] MEDS ORDERED: ePHEDrine SULFATE 25 MG/5 ML(5MG/ML) SYRINGE As Ordered ONE ×2 (10:07→10:50)
[2022-05-18] MEDS ORDERED: oxyCODONE 5MG TAB PO PRN (11:35)
[2022-05-18] MEDS ORDERED: LR 1,000 ML IV SCH (11:35)
[2022-05-18] MEDS ORDERED: ONDANSETRON 4MG 2ML VIAL IV PRN (11:35)
[2022-05-18] MEDS ORDERED: fentaNYL 100 MCG/2 ML INJECTION IV PRN (11:35)
[2022-05-18] MEDS ORDERED: PERCOCET 5MG/325MG TAB PO PRN (12:10)
[2022-05-18] MEDS ORDERED: PERCOCET PO (12:26)
[2022-05-18 13:10] VITALS: BP 157/95
== END 2022-05-18 13:10 | disposition home or self-care (01) ==
LOC: M SDC 08:22
PROVIDERS: ATTEND Urology
DX: N50.3 Cyst of epididymis (principal); E78.5 Hyperlipidemia, unspecified; Z79.899 Other long term (current) drug therapy
CPT/HCPCS: 54830; 88304; J0131; J1100; J2250; J2405; J3010

== ENCOUNTER → 2022-11-05 | Outpatient (CLI) | payer MEDICARE, OTHER ==
[~2022-11-05] MED LIST changes: -ACETAMINOPHEN 1000MG 100ML IV BAG As Ordered ONE; -LIDOCAINE 2% 100MG/5ML SDV (FOR ANES.) As Ordered ONE; -LR 1,000 ML IV SCH; -MIDAZOLAM INJ 2MG/2ML VIAL As Ordered ONE; -ONDANSETRON 4MG 2ML VIAL As Ordered ONE; -ONDANSETRON 4MG 2ML VIAL IV PRN; +PERCOCET PO; -ceFAZolin SOD 2 GM in IV 1 EA IV ONE; -fentaNYL 100 MCG/2 ML INJECTION IV PRN; -fentaNYL 250 MCG/5 ML INJECTION As Ordered ONE; -oxyCODONE 5MG TAB PO PRN; -propofoL 200 MG/20 ML VIAL As Ordered ONE
[2022-11-05 12:33] LABS: BASO # 0.1 10^3/uL (0.0-0.2); BASO % 0.7 % (0.0-1.0); EOS # 0.2 10^3/uL (0.0-0.5); EOS % 2.6 % (0.0-3.0); HEMATOCRIT 46.4 % (42.0-52.0); HEMOGLOBIN 15.5 g/dl (13.5-17.5); LYMPH # 2.6 10^3/uL (1.5-5.0); LYMPH % 34.7 % (24.0-44.0); MEAN CORPUSCULAR HEMOGLOBIN 30.5 pg (27.0-33.0); MEAN CORPUSCULAR HGB CONC 33.4 g/dl (32.0-36.5); MEAN CORPUSCULAR VOLUME 91.3 fl (80.0-96.0); MONO # 0.7 10^3/uL (0.0-0.8); MONO % 9.1 % (2.0-8.0); NEUTROPHILS # 3.9 10^3/uL (1.5-8.5); NEUTROPHILS % 52.5 % (36.0-66.0); PLATELET COUNT, AUTOMATED 228 10^3/uL (150-450); RED BLOOD COUNT 5.08 10^6/uL (4.30-6.10); WHITE BLOOD COUNT 7.4 10^3/uL (4.0-10.0)
[2022-11-05 12:57] LABS: ALBUMIN 3.8 G/DL (3.2-5.2); ALKALINE PHOSPHATASE 64 U/L (46-116); ALT/SGPT 29 U/L (7.0-40); AST/SGOT 15 U/L (<34); BILIRUBIN,TOTAL 0.8 MG/DL (0.3-1.2); BLOOD UREA NITROGEN 11 MG/DL (9-23); CALCIUM LEVEL 8.9 MG/DL (8.3-10.6); CARBON DIOXIDE LEVEL 28 MMOL/L (20-31); CHLORIDE LEVEL 106 MMOL/L (98-107); CHOLESTEROL LEVEL 157 MG/DL (<200); CHOLESTEROL RISK RATIO 4.04 (<5); CREATININE FOR GFR 0.67 MG/DL (0.70-1.30); GLOMERULAR FILTRATION RATE > 60.0 (>49); GLUCOSE, FASTING 95 MG/DL (74-106); HDL CHOLESTEROL 38.8 MG/DL (>40); LDL CHOLESTEROL 99.4 MG/DL (<100); NON-HDL-C 118.2 MG/DL; POTASSIUM SERUM 4.4 MMOL/L (3.5-5.1); SODIUM LEVEL 141 MMOL/L (136-145); TOTAL PROTEIN 6.6 G/DL (5.7-8.2); TRIGLYCERIDES LEVEL 94 MG/DL (<150)
[2022-11-05 12:58] LABS: THYROID STIMULATING HORMONE 1.817 uIU/ML (0.55-4.78)
== END ==
LOC: M WUC 09:07
PROVIDERS: ATTEND Physician Assistant Medical
DX: E78.00 Pure hypercholesterolemia, unspecified (principal); F17.210 Nicotine dependence, cigarettes, uncomplicated

== ENCOUNTER → 2023-11-18 | Outpatient (CLI) | payer MEDICARE, OTHER ==
[2023-11-18 10:32] LABS: BASO % 0.7 % (0.0-1.0); EOS # 0.1 10^3/uL (0.0-0.5); EOS % 1.8 % (0.0-3.0); HEMATOCRIT 43.4 % (42.0-52.0); HEMOGLOBIN 14.6 g/dl (13.5-17.5); LYMPH # 2.3 10^3/uL (1.5-5.0); LYMPH % 37.1 % (24.0-44.0); MEAN CORPUSCULAR HEMOGLOBIN 30.7 pg (27.0-33.0); MEAN CORPUSCULAR HGB CONC 33.6 g/dl (32.0-36.5); MEAN CORPUSCULAR VOLUME 91.2 fl (80.0-96.0); MONO # 0.6 10^3/uL (0.0-0.8); MONO % 9.1 % (2.0-8.0); NEUTROPHILS # 3.1 10^3/uL (1.5-8.5); PLATELET COUNT, AUTOMATED 204 10^3/uL (150-450); RED BLOOD COUNT 4.76 10^6/uL (4.30-6.10); WHITE BLOOD COUNT 6.2 10^3/uL (4.0-10.0)
[2023-11-18 11:08] LABS: ALBUMIN 3.8 G/DL (3.2-5.2); ALKALINE PHOSPHATASE 59 U/L (46-116); ALT/SGPT 27 U/L (7.0-40); AST/SGOT 18 U/L (<34); BILIRUBIN,TOTAL 0.8 MG/DL (0.3-1.2); BLOOD UREA NITROGEN 14 MG/DL (9-23); CALCIUM LEVEL 8.7 MG/DL (8.3-10.6); CARBON DIOXIDE LEVEL 29 MMOL/L (20-31); CHLORIDE LEVEL 106 MMOL/L (98-107); CHOLESTEROL LEVEL 169 MG/DL (<200); CHOLESTEROL RISK RATIO 4.07 (<5); CREATININE FOR GFR 0.69 MG/DL (0.70-1.30); GLOMERULAR FILTRATION RATE > 60.0 (>49); GLUCOSE, FASTING 85 MG/DL (74-106); HDL CHOLESTEROL 41.5 MG/DL (>40); LDL CHOLESTEROL 112.5 MG/DL (<100); NON-HDL-C 127.5 MG/DL; POTASSIUM SERUM 3.9 MMOL/L (3.5-5.1); SODIUM LEVEL 140 MMOL/L (136-145); TOTAL PROTEIN 6.3 G/DL (5.7-8.2); TRIGLYCERIDES LEVEL 75 MG/DL (<150)
== END ==
LOC: M WUC 08:41
PROVIDERS: ATTEND Physician Assistant Medical
DX: E78.00 Pure hypercholesterolemia, unspecified (principal); F17.210 Nicotine dependence, cigarettes, uncomplicated

== ENCOUNTER → 2024-11-19 | Outpatient (CLI) | payer MEDICARE, OTHER ==
[2024-11-19 12:43] LABS: ALT/SGPT 26 U/L (7.0-40); AST/SGOT 22 U/L (<34); CALCIUM LEVEL 8.7 MG/DL (8.3-10.6); CARBON DIOXIDE LEVEL 29 MMOL/L (20-31); CHLORIDE LEVEL 105 MMOL/L (98-107); CHOLESTEROL LEVEL 163 MG/DL (<200); CHOLESTEROL RISK RATIO 3.82 (<5); CREATININE FOR GFR 0.76 MG/DL (0.70-1.30); GLOMERULAR FILTRATION RATE > 90.0 (>49); LDL CHOLESTEROL 104.8 MG/DL (<100); NON-HDL-C 120.4 MG/DL; POTASSIUM SERUM 4.5 MMOL/L (3.5-5.1); SODIUM LEVEL 141 MMOL/L (136-145); TRIGLYCERIDES LEVEL 78 MG/DL (<150)
[2024-11-19 12:44] LABS: BASO # 0.0 10^3/uL (0.0-0.2); BASO % 0.7 % (0.0-1.0); EOS # 0.1 10^3/uL (0.0-0.5); EOS % 2.0 % (0.0-3.0); LYMPH # 2.2 10^3/uL (1.5-5.0); LYMPH % 37.0 % (24.0-44.0); MONO # 0.6 10^3/uL (0.0-0.8); MONO % 10.4 % (2.0-8.0); NEUTROPHILS # 2.9 10^3/uL (1.5-8.5); NEUTROPHILS % 49.7 % (36.0-66.0); PLATELET COUNT, AUTOMATED 213 10^3/uL (150-450); TOTAL 25(OH) VITAMIN D 40.2 NG/ML (20.0-100.0)
== END ==
LOC: M WUC 08:31
PROVIDERS: ATTEND Physician Assistant Medical
DX: E78.00 Pure hypercholesterolemia, unspecified (principal); F17.210 Nicotine dependence, cigarettes, uncomplicated; Z79.899 Other long term (current) drug therapy